=== PATIENT | female | born 1975 | race African-American/Black ===

== ENCOUNTER 2021-11-25 12:54 | Inpatient (IN) ==
[2021-11-25] MEDS ORDERED: ETOMIDATE 20 MG/10 ML VIAL IV ONE ×2 (15:50→16:07)
[2021-11-25] MEDS ORDERED: MIDAZOLAM 10 MG/2 ML VIAL ONE ×2 (15:50→16:52)
[2021-11-25] MEDS ORDERED: NOREPINEPHRINE 8 MG in SODIUM CHLORIDE 0.9% 242 ML IV PRN (15:51)
[2021-11-25] MEDS ORDERED: ONDANSETRON 4 MG/2 ML VIAL IV PRN (15:51)
[2021-11-25] MEDS ORDERED: ALBUTEROL 2.5 MG/3 ML NEB RESP TX PRN (15:51)
[2021-11-25] MEDS ORDERED: SUCCINYLCHOLINE 200 MG/10 ML VIAL ONE (15:52)
[2021-11-25] MEDS ORDERED: SODIUM CHLORIDE 0.9% 1,000 ML IV ONE (15:55)
[2021-11-25] MEDS ORDERED: SUCCINYLCHOLINE 200 MG/10 ML VIAL IV ONE (16:07)
[2021-11-25 16:37] LABS: Basophils % 0.1 % (0.0-0.8); Hematocrit 39.9 VOL% (35.7-47.0); Hemoglobin 12.5 GM/DL (12.0-16.0); Immature Granulocytes % 0.6 %; Immature Granulocytes Absolute 0.04 #; Lymphocytes # 0.5 10*3/uL (1.4-4.0); Lymphocytes % 6.9 % (21.3-54.2); Mean Corpuscular HGB Conc 31.3 GM/DL (32-36); Mean Corpuscular Volume 106.7 FL (87-102); Monocytes # 0.2 10*3/uL (0.11-0.8); Monocytes % 3.2 % (1.7-12.7); NRBC # 0.04 10*3/uL; Neutrophils % 89.2 % (38.7-73.9); Platelet Count 187 T/CUMM (130-400); Red Blood Count 3.74 MC/CUMM (3.8-5.5); Red Cell Distribution Width 13.1 % (9.3-17.3)
[2021-11-25] MEDS ORDERED: MIDAZOLAM 2 MG/2 ML VIAL IV ONE (16:50)
[2021-11-25] MEDS ORDERED: THIAMINE 200 MG/2 ML VIAL IV ONE (16:51)
[2021-11-25 16:52] LABS: Lactic Acid 0.8 MMOL/L (0.4-2.0)
[2021-11-25 16:58] LABS: Calcium 6.3 MG/DL (8.5-10.1); Osmolality,Calculated 307.1 MOS/KG (273-304); Potassium 4.1 MMOL/L (3.5-5.1); Total Protein 7.6 G/DL (6.4-8.2)
[2021-11-25 17:11] LABS: Band Neutrophils 6 % (0-10); Lymphocytes 11 % (20-55); Metamyelocytes 5 %; Myelocytes 1 %
[2021-11-25 17:13] LABS: Anisocytosis 1+; Total Cells Counted 100
[2021-11-25 17:14] LABS: Macrocytosis 1+; Polychromasia Slight; Thyroid Stimulating Hormone 0.455 uIU/ml (0.358-3.74)
[2021-11-25] MEDS: PANTOPRAZOLE 40 MG VIAL IV SCH (17:48)
[2021-11-25] MEDS: SODIUM CHLORIDE 0.9% 1,000 ML IV SCH (17:48)
[2021-11-25] MEDS: THIAMINE INJ 100 MG, FOLIC ACID INJ 1 MG, MULTIVITAMIN INJ 10 ML in SODIUM CHLORIDE 0.9... IV SCH (17:48)
[2021-11-25] MEDS: PIPERACILLIN/TAZOBACTAM 3,375 MG in SODIUM CHLORIDE 0.9% 100 ML IV SCH (17:49)
[2021-11-25] MEDS ORDERED: LACTATED RINGERS 1,000 ML IV ONE (17:53)
[2021-11-25] MEDS ORDERED: CALCIUM GLUCONATE RIDER 2,000 MG/100 ML PREMIX IV ONE (18:00)
[2021-11-25] MEDS: MIDAZOLAM 100 MG in SODIUM CHLORIDE 0.9% 80 ML IV PRN (18:07)
[2021-11-25] MEDS ORDERED: LORazepam 2 MG/1 ML VIAL IV ONE ×2 (18:32→18:35)
[2021-11-25] MEDS ORDERED: LORazepam 2 MG/1 ML VIAL ONE ×2 (18:32)
[2021-11-25 20:06] LABS: Hepatitis B Core IgM Quant 0.07 Index; Hepatitis B Surface Ag Quant 0.76 Index; Hepatitis B Surface Ag Result Non-Reactive (NonReactive); Hepatitis C Virus Ab Quant 0.14 Index; Hepatitis C Virus Ab Result Non-Reactive (NonReactive)
[2021-11-25 20:38] LABS: ABG Base Excess -1.3 MMOL/L (-2.5-2.5); ABG HCO3 23.4 MMOL/L (20-26); ABG Oxygen Saturation 99.7 % (95-100); ABG PCO2 58.4 MM HG (35-48); ABG TCO2 24.3 MMOL/L (23-27)
[2021-11-25] MEDS: MAGNESIUM SULF RIDER 2 GM/50 ML PREMIX IV PRN (21:58)
[2021-11-25] MEDS: ASPIRIN 325 MG TABLET PO SCH (22:03)
[2021-11-25] MEDS: LACTULOSE 20 GM/30 ML UDCUP PO SCH (22:05)
[2021-11-25 22:19] LABS: Amorphous Crystals,Urine Occasional /HPF (Few); Hyaline Casts,Urine 24 /LPF (0-3); Mucus,Urine Few /LPF (Occasional); RBC,Urine 2 /HPF (0-4); Squamous Epithelial Cell,Urine Occasional /HPF (0-10)
[2021-11-25 22:20] LABS: Bilirubin,Urine Small mg/dL (Negative); Blood, Urine Large mg/dL (Negative); Glucose,Urine (UA) Negative (Negative); Ketones,Urine Negative (Negative); Nitrite,Urine Negative (Negative); Protein,Urine >=300 mg/dL (Negative); Urine Appearance SL CLOUDY (Clear); Urine Color Yellow (Yellow); Urine Specific Gravity >= 1.030 (1.001-1.035); Urine pH 5.5 (4.5-8.0)
[2021-11-25 22:22] LABS: Barbiturates Screen,Urine Negative (Negative); Benzodiazepines Screen,Urine Positive (Negative); Cannabinoid Screen,Urine Positive (Negative); Opiate Screen,Urine Negative (Negative); Phencyclidine Screen,Urine Negative (Negative)
[2021-11-26] MEDS: PIPERACILLIN/TAZOBACTAM 3,375 MG in SODIUM CHLORIDE 0.9% 100 ML IV SCH ×3 (02:15→17:35)
[2021-11-26] MEDS: SODIUM CHLORIDE 0.9% 1,000 ML IV SCH ×2 (03:18→05:38)
[2021-11-26 03:45] LABS: ABG HCO3 23.6 MMOL/L (20-26); ABG Oxygen Saturation 99.9 % (95-100); ABG PCO2 46.3 MM HG (35-48); ABG TCO2 22.9 MMOL/L (23-27)
[2021-11-26 03:47] LABS: Basophils % 0.2 % (0.0-0.8); Hematocrit 33.9 VOL% (35.7-47.0); Hemoglobin 10.8 GM/DL (12.0-16.0); Immature Granulocytes % 0.3 %; Immature Granulocytes Absolute 0.02 #; Lymphocytes # 0.6 10*3/uL (1.4-4.0); Lymphocytes % 9.9 % (21.3-54.2); Mean Corpuscular HGB Conc 31.9 GM/DL (32-36); Mean Corpuscular Volume 104.3 FL (87-102); Mean Platelet Volume 11.2 FL (9.6-12.0); Monocytes # 0.2 10*3/uL (0.11-0.8); Monocytes % 3.3 % (1.7-12.7); NRBC # 0.02 10*3/uL; Neutrophils % 86.3 % (38.7-73.9); Platelet Count 165 T/CUMM (130-400); Red Blood Count 3.25 MC/CUMM (3.8-5.5); Red Cell Distribution Width 12.9 % (9.3-17.3); White Blood Count 6.4 T/CUMM (4-12)
[2021-11-26] MEDS: MIDAZOLAM 100 MG in SODIUM CHLORIDE 0.9% 80 ML IV PRN (04:08)
[2021-11-26 04:26] LABS: Albumin 2.6 G/DL (3.4-5.0); Bilirubin,Total 1.5 MG/DL (0.20-1.00); Calcium 6.5 MG/DL (8.5-10.1); Potassium 3.4 MMOL/L (3.5-5.1); Total Protein 5.9 G/DL (6.4-8.2)
[2021-11-26 04:33] LABS: Risk Ratio 4.57; VLDL Cholesterol 33.4 MG/DL
[2021-11-26 04:38] LABS: Lymphocytes 11 % (20-55); Platelet Estimate Adequate; Total Cells Counted 100
[2021-11-26] MEDS: LACTULOSE 20 GM/30 ML UDCUP PO SCH ×4 (04:53→21:18)
[2021-11-26] MEDS ORDERED: LORazepam 2 MG/1 ML VIAL ONE (05:10)
[2021-11-26] MEDS: fentaNYL INJ 1,250 MCG in SODIUM CHLORIDE 0.9% 225 ML IV PRN (05:19)
[2021-11-26] MEDS: LORazepam 2 MG/1 ML VIAL IV PRN ×2 (05:20→20:36)
[2021-11-26] MEDS ORDERED: POTASSIUM CHLORIDE 20 MEQ TABLET PO PRN (05:40)
[2021-11-26] MEDS: LACTATED RINGERS 1,000 ML IV SCH ×2 (07:15→16:35)
[2021-11-26 08:36] LABS: ABG HCO3 24.6 MMOL/L (20-26); ABG Oxygen Saturation 97.2 % (95-100); ABG PCO2 39.7 MM HG (35-48); ABG PO2 92.8 MM HG (80-95); ABG TCO2 25.8 MMOL/L (23-27)
[2021-11-26] MEDS: ASPIRIN 325 MG TABLET PO SCH (08:40)
[2021-11-26] MEDS: ERGOCALCIFEROL 50,000 UNIT CAPSULE PO SCH (08:40)
[2021-11-26] MEDS: CALCIUM CARBONATE CHEW 500 MG TABLET PO SCH ×2 (09:05→20:37)
[2021-11-26] MEDS: POTASSIUM BICARB EFFERVESCENT 20 MEQ TAB.EFF PER TUBE PRN ×3 (09:05→23:02)
[2021-11-26] MEDS ORDERED: ROCURONIUM 100 MG/10 ML VIAL IV ONE ×2 (09:50→09:51)
[2021-11-26] MEDS ORDERED: GLUCAGON 1 MG VIAL IM PRN (11:58)
[2021-11-26] MEDS ORDERED: DEXTROSE 10% 25 GM/250 ML BAG IV PRN (11:58)
[2021-11-26] MEDS: INSULIN REGULAR 100 UNIT/ML SUBCUT SCH ×2 (14:00→17:10)
[2021-11-26] MEDS ORDERED: METOPROLOL TARTRATE 5 MG/5 ML VIAL IV ONE ×2 (14:58→15:00)
[2021-11-26] MEDS: PANTOPRAZOLE 40 MG VIAL IV SCH (16:10)
[2021-11-26] MEDS: THIAMINE INJ 100 MG, FOLIC ACID INJ 1 MG, MULTIVITAMIN INJ 10 ML in SODIUM CHLORIDE 0.9... IV SCH (16:15)
[2021-11-26 17:25] LABS: Arterial Base Excess iSTAT -1 MMOL/L (-2.5-2.5); Arterial Bicarbonate iSTAT 27.8 MMOL/L (20-26); Arterial O2 Saturation iSTAT 99 % (95-100); Arterial PCO2 iSTAT 67 MM HG (35-48); Arterial PO2 iSTAT 174 MM HG (80-95); Arterial Total CO2 iSTAT 30 MMO/L (23-27); Arterial pH iSTAT 7.224 (7.35-7.45)
[2021-11-27] MEDS: INSULIN REGULAR 100 UNIT/ML SUBCUT SCH ×5 (00:23→20:37)
[2021-11-27] MEDS: POTASSIUM BICARB EFFERVESCENT 20 MEQ TAB.EFF PER TUBE PRN ×4 (01:10→16:41)
[2021-11-27] MEDS: PIPERACILLIN/TAZOBACTAM 3,375 MG in SODIUM CHLORIDE 0.9% 100 ML IV SCH ×3 (01:24→19:45)
[2021-11-27] MEDS: fentaNYL INJ 1,250 MCG in SODIUM CHLORIDE 0.9% 225 ML IV PRN (02:30)
[2021-11-27] MEDS: LACTATED RINGERS 1,000 ML IV SCH (02:35)
[2021-11-27 03:50] LABS: Basophils % 0.3 % (0.0-0.8); Eosinophils % 0.3 % (0.00-10.9); Hematocrit 28.6 VOL% (35.7-47.0); Hemoglobin 9.6 GM/DL (12.0-16.0); Immature Granulocytes % 0.3 %; Immature Granulocytes Absolute 0.02 #; Lymphocytes # 0.8 10*3/uL (1.4-4.0); Lymphocytes % 10.9 % (21.3-54.2); Mean Corpuscular HGB Conc 33.6 GM/DL (32-36); Mean Corpuscular Volume 100.7 FL (87-102); Mean Platelet Volume 11.5 FL (9.6-12.0); Monocytes # 0.3 10*3/uL (0.11-0.8); Monocytes % 4.2 % (1.7-12.7); NRBC # 0.05 10*3/uL; Platelet Count 137 T/CUMM (130-400); Red Blood Count 2.84 MC/CUMM (3.8-5.5); Red Cell Distribution Width 12.6 % (9.3-17.3)
[2021-11-27 03:51] LABS: ABG Base Excess 3.2 MMOL/L (-2.5-2.5); ABG HCO3 27.3 MMOL/L (20-26); ABG Oxygen Saturation 99.5 % (95-100); ABG PCO2 38.5 MM HG (35-48); ABG PH 7.456 (7.35-7.45); ABG TCO2 24.3 MMOL/L (23-27)
[2021-11-27 04:12] LABS: Albumin 2.3 G/DL (3.4-5.0); Bilirubin,Total 1.3 MG/DL (0.20-1.00); Calcium 7.1 MG/DL (8.5-10.1); Potassium 3.6 MMOL/L (3.5-5.1); Total Protein 5.9 G/DL (6.4-8.2)
[2021-11-27 04:34] LABS: Folate 14.76 NG/ML (5.38-24.0)
[2021-11-27 04:44] LABS: Lymphocytes 8 % (20-55); Total Cells Counted 100
[2021-11-27 04:45] LABS: Platelet Estimate Adequate
[2021-11-27] MEDS: MAGNESIUM SULF RIDER 2 GM/50 ML PREMIX IV PRN (05:06)
[2021-11-27] MEDS: LACTULOSE 20 GM/30 ML UDCUP PO SCH ×6 (05:09→22:24)
[2021-11-27] MEDS ORDERED: POTASSIUM PHOSPHATE 30 MMOL in SODIUM CHLORIDE 0.9% 250 ML IV ONE ×2 (06:00→16:00)
[2021-11-27] MEDS: MIDAZOLAM 100 MG in SODIUM CHLORIDE 0.9% 80 ML IV PRN (06:44)
[2021-11-27] MEDS ORDERED: ENOXAPARIN 40 MG/0.4 ML SYRINGE SUBCUT SCH (08:30)
[2021-11-27] MEDS ORDERED: LACTULOSE 20 GM/30 ML UDCUP PO SCH (10:00)
[2021-11-27] MEDS: FOLIC ACID 1 MG TABLET PO SCH (10:15)
[2021-11-27] MEDS: MULTIVITAMIN (BEROCCA) TABLET PO SCH (10:16)
[2021-11-27] MEDS: THIAMINE 100 MG TABLET PO SCH (10:16)
[2021-11-27] MEDS: CALCIUM CARBONATE CHEW 500 MG TABLET PO SCH ×2 (10:16→20:39)
[2021-11-27] MEDS: ASPIRIN 325 MG TABLET PO SCH (10:16)
[2021-11-27] MEDS: LORazepam 1 MG TABLET NG SCH ×4 (10:16→20:19)
[2021-11-27] MEDS: ENOXAPARIN 80 MG/0.8 ML SYRINGE SUBCUT SCH ×2 (10:17→20:39)
[2021-11-27] MEDS: PANTOPRAZOLE 40 MG VIAL IV SCH (16:44)
[2021-11-28] MEDS: LORazepam 1 MG TABLET NG SCH ×5 (00:08→21:21)
[2021-11-28] MEDS: INSULIN REGULAR 100 UNIT/ML SUBCUT SCH ×4 (00:08→17:39)
[2021-11-28] MEDS: fentaNYL INJ 1,250 MCG in SODIUM CHLORIDE 0.9% 225 ML IV PRN (00:57)
[2021-11-28] MEDS: LACTULOSE 20 GM/30 ML UDCUP PO SCH ×6 (02:30→21:18)
[2021-11-28] MEDS: PIPERACILLIN/TAZOBACTAM 3,375 MG in SODIUM CHLORIDE 0.9% 100 ML IV SCH (02:30)
[2021-11-28 03:28] LABS: ABG Base Excess 4.9 MMOL/L (-2.5-2.5); ABG HCO3 28.8 MMOL/L (20-26); ABG Oxygen Saturation 96.7 % (95-100); ABG PCO2 37.6 MM HG (35-48); ABG PH 7.487 (7.35-7.45); ABG PO2 83.1 MM HG (80-95); ABG TCO2 25.8 MMOL/L (23-27); Basophils % 0.4 % (0.0-0.8); Eosinophils # 0.1 10*3/uL (0.0-0.87); Eosinophils % 1.3 % (0.00-10.9); Hematocrit 30.6 VOL% (35.7-47.0); Hemoglobin 9.9 GM/DL (12.0-16.0); Immature Granulocytes % 0.7 %; Immature Granulocytes Absolute 0.05 #; Lymphocytes # 1.2 10*3/uL (1.4-4.0); Lymphocytes % 16.7 % (21.3-54.2); Mean Corpuscular HGB Conc 32.4 GM/DL (32-36); Mean Corpuscular Volume 102.3 FL (87-102); Mean Platelet Volume 11.7 FL (9.6-12.0); Monocytes # 0.5 10*3/uL (0.11-0.8); NRBC # 0.07 10*3/uL; Neutrophils % 73.9 % (38.7-73.9); Platelet Count 157 T/CUMM (130-400); Red Blood Count 2.99 MC/CUMM (3.8-5.5); Red Cell Distribution Width 12.9 % (9.3-17.3); White Blood Count 7.4 T/CUMM (4-12)
[2021-11-28 03:53] LABS: Albumin 2.5 G/DL (3.4-5.0); Bilirubin,Total 0.9 MG/DL (0.20-1.00); Calcium 7.8 MG/DL (8.5-10.1); Osmolality,Calculated 305.7 MOS/KG (273-304); Potassium 3.8 MMOL/L (3.5-5.1); Total Protein 6.4 G/DL (6.4-8.2)
[2021-11-28] MEDS: MIDAZOLAM 100 MG in SODIUM CHLORIDE 0.9% 80 ML IV PRN (04:25)
[2021-11-28] MEDS: LORazepam 2 MG/1 ML VIAL IV PRN (06:04)
[2021-11-28] MEDS: MAGNESIUM SULF RIDER 2 GM/50 ML PREMIX IV PRN (06:04)
[2021-11-28] MEDS: POTASSIUM BICARB EFFERVESCENT 20 MEQ TAB.EFF PER TUBE PRN (06:05)
[2021-11-28] MEDS ORDERED: POTASSIUM PHOSPHATE 30 MMOL in SODIUM CHLORIDE 0.9% 250 ML IV ONE (07:55)
[2021-11-28] MEDS: ENOXAPARIN 80 MG/0.8 ML SYRINGE SUBCUT SCH ×2 (09:06→21:19)
[2021-11-28] MEDS: FOLIC ACID 1 MG TABLET PO SCH (09:07)
[2021-11-28] MEDS: MULTIVITAMIN (BEROCCA) TABLET PO SCH (09:07)
[2021-11-28] MEDS: carvediloL 3.125 MG TABLET PO SCH ×2 (09:07→16:08)
[2021-11-28] MEDS: ASPIRIN 325 MG TABLET PO SCH (09:07)
[2021-11-28] MEDS: THIAMINE 100 MG TABLET PO SCH (09:08)
[2021-11-28] MEDS: cefTRIAXone 1,000 MG in SODIUM CHLORIDE 0.9% 100 ML IV SCH (09:09)
[2021-11-28] MEDS: DEXMEDETOMIDINE 200 MCG in SODIUM CHLORIDE 0.9% 48 ML IV PRN ×3 (12:28→21:08)
[2021-11-28] MEDS: PANTOPRAZOLE 40 MG VIAL IV SCH (16:10)
[2021-11-29] MEDS: DEXMEDETOMIDINE 400 MCG in SODIUM CHLORIDE 0.9% 96 ML IV PRN ×2 (00:52→08:40)
[2021-11-29] MEDS: INSULIN REGULAR 100 UNIT/ML SUBCUT SCH ×4 (00:54→17:30)
[2021-11-29] MEDS: LORazepam 1 MG TABLET NG SCH ×4 (02:46→23:59)
[2021-11-29] MEDS: LACTULOSE 20 GM/30 ML UDCUP PO SCH ×6 (02:47→21:04)
[2021-11-29 04:53] LABS: ABG Base Excess 2.2 MMOL/L (-2.5-2.5); ABG HCO3 26.3 MMOL/L (20-26); ABG Oxygen Saturation 96.6 % (95-100); ABG PCO2 39.4 MM HG (35-48); ABG PH 7.435 (7.35-7.45); ABG PO2 88.9 MM HG (80-95)
[2021-11-29 04:54] LABS: Basophils % 0.3 % (0.0-0.8); Eosinophils # 0.1 10*3/uL (0.0-0.87); Eosinophils % 1.5 % (0.00-10.9); Hematocrit 31.9 VOL% (35.7-47.0); Hemoglobin 10.3 GM/DL (12.0-16.0); Immature Granulocytes % 1.7 %; Immature Granulocytes Absolute 0.13 #; Lymphocytes # 1.7 10*3/uL (1.4-4.0); Lymphocytes % 22.5 % (21.3-54.2); Mean Corpuscular HGB Conc 32.3 GM/DL (32-36); Mean Corpuscular Volume 103.9 FL (87-102); Mean Platelet Volume 12.4 FL (9.6-12.0); Monocytes # 0.7 10*3/uL (0.11-0.8); Monocytes % 9.9 % (1.7-12.7); NRBC # 0.18 10*3/uL; Neutrophils % 64.1 % (38.7-73.9); Platelet Count 168 T/CUMM (130-400); Red Blood Count 3.07 MC/CUMM (3.8-5.5); Red Cell Distribution Width 12.8 % (9.3-17.3); White Blood Count 7.5 T/CUMM (4-12)
[2021-11-29 05:11] LABS: Albumin 2.4 G/DL (3.4-5.0); Bilirubin,Total 0.4 MG/DL (0.20-1.00); Calcium 8.5 MG/DL (8.5-10.1); Potassium 4.6 MMOL/L (3.5-5.1); Total Protein 6.4 G/DL (6.4-8.2)
[2021-11-29 05:17] LABS: Platelet Estimate Normal
[2021-11-29 05:40] LABS: Phosphorous 3.8 MG/DL (2.5-4.9)
[2021-11-29] MEDS: fentaNYL INJ 1,250 MCG in SODIUM CHLORIDE 0.9% 225 ML IV PRN (08:45)
[2021-11-29] MEDS: ASPIRIN 325 MG TABLET PO SCH (09:04)
[2021-11-29] MEDS: MULTIVITAMIN (BEROCCA) TABLET PO SCH (09:04)
[2021-11-29] MEDS: THIAMINE 100 MG TABLET PO SCH (09:04)
[2021-11-29] MEDS: carvediloL 3.125 MG TABLET PO SCH ×2 (09:09→17:33)
[2021-11-29] MEDS: cefTRIAXone 1,000 MG in SODIUM CHLORIDE 0.9% 100 ML IV SCH (09:10)
[2021-11-29] MEDS: FOLIC ACID 1 MG TABLET PO SCH (09:10)
[2021-11-29] MEDS: ENOXAPARIN 80 MG/0.8 ML SYRINGE SUBCUT SCH ×2 (09:11→21:03)
[2021-11-29] MEDS: MAGNESIUM SULF RIDER 2 GM/50 ML PREMIX IV PRN (09:34)
[2021-11-29] MEDS: PANTOPRAZOLE 40 MG VIAL IV SCH (16:16)
[2021-11-30] MEDS: INSULIN REGULAR 100 UNIT/ML SUBCUT SCH ×4 (00:26→17:25)
[2021-11-30] MEDS: LACTULOSE 20 GM/30 ML UDCUP PO SCH ×6 (01:00→21:00)
[2021-11-30] MEDS: fentaNYL INJ 1,250 MCG in SODIUM CHLORIDE 0.9% 225 ML IV PRN (03:30)
[2021-11-30 04:05] LABS: ABG Base Excess 2.3 MMOL/L (-2.5-2.5); ABG HCO3 26.4 MMOL/L (20-26); ABG Oxygen Saturation 94.6 % (95-100); ABG PCO2 38.3 MM HG (35-48); ABG PH 7.446 (7.35-7.45); ABG PO2 75.9 MM HG (80-95)
[2021-11-30 05:30] LABS: Basophils % 0.3 % (0.0-0.8); Eosinophils # 0.1 10*3/uL (0.0-0.87); Eosinophils % 0.9 % (0.00-10.9); Hematocrit 30.4 VOL% (35.7-47.0); Hemoglobin 9.7 GM/DL (12.0-16.0); Immature Granulocytes Absolute 0.14 #; Lymphocytes # 1.3 10*3/uL (1.4-4.0); Lymphocytes % 18.9 % (21.3-54.2); Mean Corpuscular HGB Conc 31.9 GM/DL (32-36); Mean Corpuscular Volume 103.8 FL (87-102); Monocytes # 0.7 10*3/uL (0.11-0.8); Monocytes % 9.8 % (1.7-12.7); NRBC # 0.06 10*3/uL; Neutrophils % 68.1 % (38.7-73.9); Platelet Count 177 T/CUMM (130-400); Red Blood Count 2.93 MC/CUMM (3.8-5.5); Red Cell Distribution Width 12.8 % (9.3-17.3)
[2021-11-30 05:42] LABS: Alanine Aminotransferase 73 U/L (13-56); Albumin 2.2 G/DL (3.4-5.0); Alkaline Phosphatase 92 U/L (45-117); Aspartate Amino Transferase 112 U/L (0-37); Bilirubin,Total < 0.39 MG/DL (0.20-1.00); Blood Urea Nitrogen 15 MG/DL (7-18); Calcium 8.8 MG/DL (8.5-10.1); Carbon Dioxide 27 MMOL/L (21-32); Chloride 116 MMOL/L (98-107); Estimated Glom Filtration Rate 161 ML/MIN; Glucose 113 MG/DL (74-106); Osmolality,Calculated 295.3 MOS/KG (273-304); Potassium 4.4 MMOL/L (3.5-5.1); Sodium 148 MMOL/L (136-145); Total Protein 5.4 G/DL (6.4-8.2)
[2021-11-30 05:48] LABS: Phosphorous 5.1 MG/DL (2.5-4.9); Platelet Estimate Normal
[2021-11-30 05:49] LABS: Anisocytosis Slight
[2021-11-30 05:50] LABS: Macrocytosis Slight
[2021-11-30] MEDS: MAGNESIUM SULF RIDER 4 GM/100 ML PREMIX IV PRN (06:00)
[2021-11-30] MEDS: cefTRIAXone 1,000 MG in SODIUM CHLORIDE 0.9% 100 ML IV SCH (08:20)
[2021-11-30] MEDS: LORazepam 2 MG/1 ML VIAL IV PRN (08:20)
[2021-11-30] MEDS: ENOXAPARIN 80 MG/0.8 ML SYRINGE SUBCUT SCH ×2 (08:25→20:57)
[2021-11-30] MEDS: FOLIC ACID 1 MG TABLET PO SCH (08:30)
[2021-11-30] MEDS: carvediloL 3.125 MG TABLET PO SCH ×2 (08:30→17:15)
[2021-11-30] MEDS: MULTIVITAMIN (BEROCCA) TABLET PO SCH (08:30)
[2021-11-30] MEDS: THIAMINE 100 MG TABLET PO SCH (08:30)
[2021-11-30] MEDS: ASPIRIN 325 MG TABLET PO SCH (08:30)
[2021-11-30] MEDS: PANTOPRAZOLE 40 MG VIAL IV SCH (16:00)
[2021-12-01] MEDS: INSULIN REGULAR 100 UNIT/ML SUBCUT SCH ×3 (00:22→15:35)
[2021-12-01] MEDS: fentaNYL INJ 1,250 MCG in SODIUM CHLORIDE 0.9% 225 ML IV PRN ×2 (01:00→23:50)
[2021-12-01] MEDS: LACTULOSE 20 GM/30 ML UDCUP PO SCH ×4 (01:03→20:03)
[2021-12-01 03:38] LABS: ABG Base Excess 2.7 MMOL/L (-2.5-2.5); ABG HCO3 26.8 MMOL/L (20-26); ABG Oxygen Saturation 97.4 % (95-100); ABG PH 7.445 (7.35-7.45); ABG TCO2 24.2 MMOL/L (23-27)
[2021-12-01 03:39] LABS: Basophils % 0.2 % (0.0-0.8); Eosinophils # 0.1 10*3/uL (0.0-0.87); Hematocrit 29.5 VOL% (35.7-47.0); Hemoglobin 9.7 GM/DL (12.0-16.0); Immature Granulocytes % 1.7 %; Immature Granulocytes Absolute 0.14 #; Lymphocytes # 1.3 10*3/uL (1.4-4.0); Lymphocytes % 15.1 % (21.3-54.2); Mean Corpuscular HGB Conc 32.9 GM/DL (32-36); Mean Corpuscular Volume 101.7 FL (87-102); Mean Platelet Volume 12.6 FL (9.6-12.0); Monocytes # 0.9 10*3/uL (0.11-0.8); Monocytes % 10.6 % (1.7-12.7); NRBC # 0.03 10*3/uL; Neutrophils % 71.4 % (38.7-73.9); Platelet Count 215 T/CUMM (130-400); Red Cell Distribution Width 12.9 % (9.3-17.3); White Blood Count 8.4 T/CUMM (4-12)
[2021-12-01 03:56] LABS: Calcium 8.8 MG/DL (8.5-10.1); Osmolality,Calculated 289.7 MOS/KG (273-304); Potassium 4.2 MMOL/L (3.5-5.1)
[2021-12-01 04:02] LABS: Eosinophils 1 % (0-10); Lymphocytes 13 % (20-55); Platelet Estimate Adequate; Total Cells Counted 100
[2021-12-01 04:03] LABS: Macrocytosis 1+; Polychromasia 1+
[2021-12-01] MEDS: MAGNESIUM SULF RIDER 4 GM/100 ML PREMIX IV PRN (04:05)
[2021-12-01] MEDS: ENOXAPARIN 80 MG/0.8 ML SYRINGE SUBCUT SCH ×2 (09:15→20:03)
[2021-12-01] MEDS: cefTRIAXone 1,000 MG in SODIUM CHLORIDE 0.9% 100 ML IV SCH (09:15)
[2021-12-01] MEDS: ASPIRIN 325 MG TABLET PO SCH (09:20)
[2021-12-01] MEDS: FOLIC ACID 1 MG TABLET PO SCH (09:20)
[2021-12-01] MEDS: MULTIVITAMIN (BEROCCA) TABLET PO SCH (09:20)
[2021-12-01] MEDS: THIAMINE 100 MG TABLET PO SCH (09:20)
[2021-12-01] MEDS: LEVOFLOXACIN 750 MG TABLET PER TUBE SCH (09:20)
[2021-12-01] MEDS: carvediloL 3.125 MG TABLET PO SCH ×2 (09:20→16:25)
[2021-12-01] MEDS ORDERED: ETOMIDATE 20 MG/10 ML VIAL IV ONE ×3 (10:55→12:00)
[2021-12-01] MEDS ORDERED: SUCCINYLCHOLINE 200 MG/10 ML VIAL ONE (10:57)
[2021-12-01] MEDS ORDERED: SUCCINYLCHOLINE 200 MG/10 ML VIAL IV ONE (12:00)
[2021-12-01] MEDS: PANTOPRAZOLE 40 MG VIAL IV SCH (16:25)
[2021-12-01] MEDS: levETIRAcetam LIQUID 100 MG/ML 30 ML/BOTTLE PER TUBE SCH (20:03)
[2021-12-02 04:14] LABS: ABG Base Excess 2.6 MMOL/L (-2.5-2.5); ABG HCO3 26.7 MMOL/L (20-26); ABG Oxygen Saturation 98.1 % (95-100); ABG PCO2 43.1 MM HG (35-48); ABG PH 7.415 (7.35-7.45); ABG TCO2 23.5 MMOL/L (23-27)
[2021-12-02 05:05] LABS: Basophils % 0.3 % (0.0-0.8); Eosinophils # 0.1 10*3/uL (0.0-0.87); Eosinophils % 0.6 % (0.00-10.9); Hematocrit 30.2 VOL% (35.7-47.0); Hemoglobin 9.7 GM/DL (12.0-16.0); Immature Granulocytes % 1.7 %; Immature Granulocytes Absolute 0.19 #; Lymphocytes # 1.2 10*3/uL (1.4-4.0); Lymphocytes % 10.8 % (21.3-54.2); Mean Corpuscular HGB Conc 32.1 GM/DL (32-36); Mean Corpuscular Volume 103.1 FL (87-102); Monocytes # 0.9 10*3/uL (0.11-0.8); Monocytes % 7.4 % (1.7-12.7); NRBC # 0.02 10*3/uL; Neutrophils % 79.2 % (38.7-73.9); Platelet Count 226 T/CUMM (130-400); Red Blood Count 2.93 MC/CUMM (3.8-5.5); Red Cell Distribution Width 12.8 % (9.3-17.3); White Blood Count 11.5 T/CUMM (4-12)
[2021-12-02 05:26] LABS: Calcium 8.6 MG/DL (8.5-10.1)
[2021-12-02 05:34] LABS: Eosinophils 1 % (0-10); Lymphocytes 9 % (20-55); Total Cells Counted 100
[2021-12-02 05:35] LABS: Platelet Estimate Adequate; Polychromasia Slight
[2021-12-02] MEDS: MAGNESIUM SULF RIDER 2 GM/50 ML PREMIX IV PRN (05:50)
[2021-12-02] MEDS: INSULIN REGULAR 100 UNIT/ML SUBCUT SCH ×2 (07:47→15:53)
[2021-12-02] MEDS ORDERED: MAGNESIUM SULF RIDER 2 GM/50 ML PREMIX IV ONE (07:56)
[2021-12-02] MEDS: LEVOFLOXACIN 750 MG TABLET PER TUBE SCH (09:00)
[2021-12-02] MEDS: MULTIVITAMIN (BEROCCA) TABLET PO SCH (09:00)
[2021-12-02] MEDS: FOLIC ACID 1 MG TABLET PO SCH (09:00)
[2021-12-02] MEDS: LACTULOSE 20 GM/30 ML UDCUP PO SCH ×2 (09:00→20:07)
[2021-12-02] MEDS: ENOXAPARIN 80 MG/0.8 ML SYRINGE SUBCUT SCH (09:01)
[2021-12-02] MEDS: carvediloL 3.125 MG TABLET PO SCH ×2 (09:01→18:10)
[2021-12-02] MEDS: THIAMINE 100 MG TABLET PO SCH (09:01)
[2021-12-02] MEDS: ASPIRIN 325 MG TABLET PO SCH (09:01)
[2021-12-02] MEDS: levETIRAcetam LIQUID 100 MG/ML 30 ML/BOTTLE PER TUBE SCH ×2 (09:02→20:07)
[2021-12-02] MEDS: cefTRIAXone 1,000 MG in SODIUM CHLORIDE 0.9% 100 ML IV SCH (09:02)
[2021-12-02] MEDS: PANTOPRAZOLE 40 MG VIAL IV SCH (15:50)
[2021-12-02] MEDS: fentaNYL INJ 1,250 MCG in SODIUM CHLORIDE 0.9% 225 ML IV PRN (17:12)
[2021-12-03 03:43] LABS: ABG Base Excess 2.1 MMOL/L (-2.5-2.5); ABG HCO3 26.3 MMOL/L (20-26); ABG PCO2 41.5 MM HG (35-48); ABG PH 7.419 (7.35-7.45); ABG TCO2 23.9 MMOL/L (23-27)
[2021-12-03 03:47] LABS: Basophils % 0.3 % (0.0-0.8); Eosinophils # 0.1 10*3/uL (0.0-0.87); Eosinophils % 0.9 % (0.00-10.9); Hematocrit 25.6 VOL% (35.7-47.0); Hemoglobin 8.2 GM/DL (12.0-16.0); Immature Granulocytes % 2.1 %; Immature Granulocytes Absolute 0.24 #; Lymphocytes # 1.1 10*3/uL (1.4-4.0); Lymphocytes % 9.9 % (21.3-54.2); Mean Corpuscular Volume 103.2 FL (87-102); Mean Platelet Volume 12.3 FL (9.6-12.0); Monocytes # 0.9 10*3/uL (0.11-0.8); Monocytes % 7.9 % (1.7-12.7); Neutrophils % 78.9 % (38.7-73.9); Platelet Count 271 T/CUMM (130-400); Red Blood Count 2.48 MC/CUMM (3.8-5.5); Red Cell Distribution Width 12.4 % (9.3-17.3); White Blood Count 11.3 T/CUMM (4-12)
[2021-12-03 04:03] LABS: Calcium 8.3 MG/DL (8.5-10.1); Osmolality,Calculated 283.1 MOS/KG (273-304); Potassium 3.8 MMOL/L (3.5-5.1)
[2021-12-03 04:08] LABS: Lymphocytes 7 % (20-55)
[2021-12-03 04:09] LABS: Platelet Estimate Normal; Total Cells Counted 100
[2021-12-03] MEDS: MAGNESIUM SULF RIDER 2 GM/50 ML PREMIX IV PRN (05:36)
[2021-12-03] MEDS: POTASSIUM CHLORIDE RIDER 20 MEQ/100 ML PREMIX IV PRN (05:36)
[2021-12-03] MEDS ORDERED: ROCURONIUM 100 MG/10 ML VIAL IV ONE ×2 (07:12→07:14)
[2021-12-03] MEDS ORDERED: MIDAZOLAM 2 MG/2 ML VIAL IV ONE ×2 (07:14→07:15)
[2021-12-03] MEDS: INSULIN REGULAR 100 UNIT/ML SUBCUT SCH ×2 (07:55→16:37)
[2021-12-03] MEDS ORDERED: MAGNESIUM SULF RIDER 2 GM/50 ML PREMIX IV ONE (08:53)
[2021-12-03] MEDS: THIAMINE 100 MG TABLET PO SCH (09:51)
[2021-12-03] MEDS: MULTIVITAMIN (BEROCCA) TABLET PO SCH (09:51)
[2021-12-03] MEDS: carvediloL 3.125 MG TABLET PO SCH ×2 (09:51→16:44)
[2021-12-03] MEDS: levETIRAcetam LIQUID 100 MG/ML 30 ML/BOTTLE PER TUBE SCH ×2 (09:51→20:41)
[2021-12-03] MEDS: ERGOCALCIFEROL 50,000 UNIT CAPSULE PO SCH (09:51)
[2021-12-03] MEDS: LACTULOSE 20 GM/30 ML UDCUP PO SCH (09:51)
[2021-12-03] MEDS: FOLIC ACID 1 MG TABLET PO SCH (09:52)
[2021-12-03] MEDS: LEVOFLOXACIN 750 MG TABLET PER TUBE SCH (09:52)
[2021-12-03] MEDS: cefTRIAXone 1,000 MG in SODIUM CHLORIDE 0.9% 100 ML IV SCH (10:00)
[2021-12-03] MEDS: fentaNYL INJ 1,250 MCG in SODIUM CHLORIDE 0.9% 225 ML IV PRN (11:27)
[2021-12-03] MEDS: PANTOPRAZOLE 40 MG VIAL IV SCH (16:44)
[2021-12-04 03:44] LABS: Basophils # 0.1 10*3/uL (0.0-0.2); Basophils % 0.5 % (0.0-0.8); Eosinophils # 0.1 10*3/uL (0.0-0.87); Eosinophils % 0.6 % (0.00-10.9); Hematocrit 28.4 VOL% (35.7-47.0); Hemoglobin 9.3 GM/DL (12.0-16.0); Immature Granulocytes % 1.3 %; Immature Granulocytes Absolute 0.14 #; Lymphocytes # 1.1 10*3/uL (1.4-4.0); Lymphocytes % 10.5 % (21.3-54.2); Mean Corpuscular HGB Conc 32.7 GM/DL (32-36); Mean Corpuscular Volume 101.1 FL (87-102); Monocytes # 0.7 10*3/uL (0.11-0.8); Monocytes % 6.5 % (1.7-12.7); Neutrophils % 80.6 % (38.7-73.9); Platelet Count 278 T/CUMM (130-400); Red Blood Count 2.81 MC/CUMM (3.8-5.5); Red Cell Distribution Width 12.5 % (9.3-17.3); White Blood Count 10.5 T/CUMM (4-12)
[2021-12-04 03:47] LABS: ABG Base Excess 1.7 MMOL/L (-2.5-2.5); ABG HCO3 25.9 MMOL/L (20-26); ABG PCO2 40.3 MM HG (35-48); ABG PH 7.421 (7.35-7.45)
[2021-12-04 04:07] LABS: Calcium 8.5 MG/DL (8.5-10.1); Osmolality,Calculated 283.1 MOS/KG (273-304)
[2021-12-04] MEDS: MAGNESIUM SULF RIDER 2 GM/50 ML PREMIX IV PRN (04:49)
[2021-12-04] MEDS: carvediloL 3.125 MG TABLET PO SCH ×2 (08:15→18:27)
[2021-12-04] MEDS: THIAMINE 100 MG TABLET PO SCH (08:15)
[2021-12-04] MEDS: MULTIVITAMIN (BEROCCA) TABLET PO SCH (08:15)
[2021-12-04] MEDS: LEVOFLOXACIN 750 MG TABLET PER TUBE SCH (08:15)
[2021-12-04] MEDS: LACTULOSE 20 GM/30 ML UDCUP PO SCH (08:15)
[2021-12-04] MEDS: FOLIC ACID 1 MG TABLET PO SCH (08:15)
[2021-12-04] MEDS: cefTRIAXone 1,000 MG in SODIUM CHLORIDE 0.9% 100 ML IV SCH (08:15)
[2021-12-04] MEDS: levETIRAcetam LIQUID 100 MG/ML 30 ML/BOTTLE PER TUBE SCH ×2 (08:16→21:38)
[2021-12-04] MEDS: INSULIN REGULAR 100 UNIT/ML SUBCUT SCH ×2 (14:28→18:25)
[2021-12-04] MEDS ORDERED: cloNIDine 0.1 MG TABLET PO PRN (18:06)
[2021-12-04] MEDS: PANTOPRAZOLE 40 MG VIAL IV SCH (18:24)
[2021-12-04] MEDS: carvediloL 25 MG TABLET PER TUBE SCH ×2 (18:25→21:37)
[2021-12-04] MEDS: allopurinoL 100 MG TABLET PO SCH (21:38)
[2021-12-05 04:21] LABS: Basophils # 0.1 10*3/uL (0.0-0.2); Basophils % 0.5 % (0.0-0.8); Eosinophils # 0.1 10*3/uL (0.0-0.87); Eosinophils % 0.5 % (0.00-10.9); Hematocrit 29.2 VOL% (35.7-47.0); Hemoglobin 9.6 GM/DL (12.0-16.0); Immature Granulocytes % 1.1 %; Immature Granulocytes Absolute 0.14 #; Lymphocytes # 1.2 10*3/uL (1.4-4.0); Lymphocytes % 9.6 % (21.3-54.2); Mean Corpuscular HGB Conc 32.9 GM/DL (32-36); Mean Corpuscular Volume 101.4 FL (87-102); Mean Platelet Volume 11.8 FL (9.6-12.0); Monocytes # 0.9 10*3/uL (0.11-0.8); Monocytes % 7.4 % (1.7-12.7); Neutrophils % 80.9 % (38.7-73.9); Platelet Count 316 T/CUMM (130-400); Red Blood Count 2.88 MC/CUMM (3.8-5.5); Red Cell Distribution Width 12.1 % (9.3-17.3); White Blood Count 12.8 T/CUMM (4-12)
[2021-12-05 04:23] LABS: ABG Base Excess 2.4 MMOL/L (-2.5-2.5); ABG HCO3 26.5 MMOL/L (20-26); ABG Oxygen Saturation 99.3 % (95-100); ABG PCO2 37.9 MM HG (35-48); ABG PH 7.449 (7.35-7.45); ABG TCO2 23.3 MMOL/L (23-27)
[2021-12-05 04:35] LABS: Calcium 8.8 MG/DL (8.5-10.1); Osmolality,Calculated 282.3 MOS/KG (273-304); Potassium 3.7 MMOL/L (3.5-5.1)
[2021-12-05] MEDS: MAGNESIUM SULF RIDER 2 GM/50 ML PREMIX IV PRN ×2 (05:13→07:15)
[2021-12-05] MEDS: INSULIN REGULAR 100 UNIT/ML SUBCUT SCH ×2 (07:20→17:26)
[2021-12-05] MEDS ORDERED: MAGNESIUM SULF RIDER 2 GM/50 ML PREMIX IV ONE (08:12)
[2021-12-05] MEDS: LEVOFLOXACIN 750 MG TABLET PER TUBE SCH (08:44)
[2021-12-05] MEDS: LACTULOSE 20 GM/30 ML UDCUP PO SCH (08:44)
[2021-12-05] MEDS: FLUoxetine 10 MG CAPSULE PO SCH (08:44)
[2021-12-05] MEDS: amLODIPine 10 MG TABLET PO SCH (08:45)
[2021-12-05] MEDS: OLANZapine 5 MG TABLET PO SCH (08:45)
[2021-12-05] MEDS: FOLIC ACID 1 MG TABLET PO SCH (08:45)
[2021-12-05] MEDS: MULTIVITAMIN (BEROCCA) TABLET PO SCH (08:45)
[2021-12-05] MEDS: THIAMINE 100 MG TABLET PO SCH (08:45)
[2021-12-05] MEDS: MONTELUKAST 10 MG TABLET PO SCH (08:45)
[2021-12-05] MEDS: allopurinoL 100 MG TABLET PO SCH ×3 (08:46→20:45)
[2021-12-05] MEDS: levETIRAcetam LIQUID 100 MG/ML 30 ML/BOTTLE PER TUBE SCH ×2 (08:46→20:44)
[2021-12-05] MEDS: carvediloL 25 MG TABLET PER TUBE SCH ×2 (08:46→20:44)
[2021-12-05] MEDS: cefTRIAXone 1,000 MG in SODIUM CHLORIDE 0.9% 100 ML IV SCH (08:46)
[2021-12-05] MEDS: POTASSIUM CHLORIDE RIDER 20 MEQ/100 ML PREMIX IV PRN (09:00)
[2021-12-05] MEDS: ASPIRIN 325 MG TABLET PO SCH (12:26)
[2021-12-05] MEDS: ENOXAPARIN 80 MG/0.8 ML SYRINGE SUBCUT SCH ×2 (12:26→20:44)
[2021-12-05] MEDS: PANTOPRAZOLE 40 MG VIAL IV SCH (17:26)
[2021-12-06 05:05] LABS: ABG Base Excess 2.3 MMOL/L (-2.5-2.5); ABG HCO3 26.5 MMOL/L (20-26); ABG Oxygen Saturation 99.4 % (95-100); ABG PCO2 36.7 MM HG (35-48); ABG PH 7.459 (7.35-7.45); ABG TCO2 23.6 MMOL/L (23-27)
[2021-12-06 05:08] LABS: Basophils # 0.1 10*3/uL (0.0-0.2); Basophils % 0.8 % (0.0-0.8); Eosinophils # 0.1 10*3/uL (0.0-0.87); Eosinophils % 0.9 % (0.00-10.9); Hematocrit 31.4 VOL% (35.7-47.0); Immature Granulocytes % 1.2 %; Immature Granulocytes Absolute 0.17 #; Lymphocytes # 1.4 10*3/uL (1.4-4.0); Lymphocytes % 10.2 % (21.3-54.2); Mean Corpuscular HGB Conc 31.8 GM/DL (32-36); Mean Corpuscular Volume 103.3 FL (87-102); Mean Platelet Volume 11.8 FL (9.6-12.0); Monocytes # 0.9 10*3/uL (0.11-0.8); Monocytes % 6.4 % (1.7-12.7); Neutrophils % 80.5 % (38.7-73.9); Platelet Count 338 T/CUMM (130-400); Red Blood Count 3.04 MC/CUMM (3.8-5.5); Red Cell Distribution Width 12.2 % (9.3-17.3); White Blood Count 14.2 T/CUMM (4-12)
[2021-12-06 05:19] LABS: Calcium 8.8 MG/DL (8.5-10.1); Osmolality,Calculated 282.3 MOS/KG (273-304); Potassium 3.9 MMOL/L (3.5-5.1)
[2021-12-06] MEDS: MAGNESIUM SULF RIDER 2 GM/50 ML PREMIX IV PRN (05:38)
[2021-12-06] MEDS: OLANZapine 5 MG TABLET PO SCH (08:22)
[2021-12-06] MEDS: MULTIVITAMIN (BEROCCA) TABLET PO SCH (08:23)
[2021-12-06] MEDS: LACTULOSE 20 GM/30 ML UDCUP PO SCH (08:23)
[2021-12-06] MEDS: carvediloL 25 MG TABLET PER TUBE SCH ×2 (08:23→20:39)
[2021-12-06] MEDS: MONTELUKAST 10 MG TABLET PO SCH (08:23)
[2021-12-06] MEDS: amLODIPine 10 MG TABLET PO SCH (08:23)
[2021-12-06] MEDS: LEVOFLOXACIN 750 MG TABLET PER TUBE SCH (08:23)
[2021-12-06] MEDS: levETIRAcetam LIQUID 100 MG/ML 30 ML/BOTTLE PER TUBE SCH ×2 (08:24→20:39)
[2021-12-06] MEDS: allopurinoL 100 MG TABLET PO SCH ×3 (08:24→20:40)
[2021-12-06] MEDS: THIAMINE 100 MG TABLET PO SCH (08:24)
[2021-12-06] MEDS: FOLIC ACID 1 MG TABLET PO SCH (08:24)
[2021-12-06] MEDS: FLUoxetine 10 MG CAPSULE PO SCH (08:25)
[2021-12-06] MEDS ORDERED: MAGNESIUM SULF RIDER 2 GM/50 ML PREMIX IV ONE (08:30)
[2021-12-06] MEDS: INSULIN REGULAR 100 UNIT/ML SUBCUT SCH ×2 (11:00→16:26)
[2021-12-06] MEDS: ENOXAPARIN 80 MG/0.8 ML SYRINGE SUBCUT SCH ×2 (11:01→20:39)
[2021-12-06] MEDS: ASPIRIN 325 MG TABLET PO SCH (11:01)
[2021-12-06] MEDS: PANTOPRAZOLE 40 MG VIAL IV SCH (16:25)
[2021-12-07 03:49] LABS: ABG Base Excess 2.5 MMOL/L (-2.5-2.5); ABG HCO3 26.7 MMOL/L (20-26); ABG Oxygen Saturation 98.6 % (95-100); ABG PCO2 37.6 MM HG (35-48); ABG PH 7.454 (7.35-7.45); ABG TCO2 23.7 MMOL/L (23-27)
[2021-12-07 05:13] LABS: Basophils # 0.1 10*3/uL (0.0-0.2); Basophils % 0.9 % (0.0-0.8); Eosinophils # 0.2 10*3/uL (0.0-0.87); Eosinophils % 1.2 % (0.00-10.9); Hematocrit 31.8 VOL% (35.7-47.0); Hemoglobin 10.4 GM/DL (12.0-16.0); Immature Granulocytes % 1.7 %; Immature Granulocytes Absolute 0.23 #; Lymphocytes # 2.2 10*3/uL (1.4-4.0); Mean Corpuscular HGB Conc 32.7 GM/DL (32-36); Mean Platelet Volume 11.9 FL (9.6-12.0); Monocytes # 0.8 10*3/uL (0.11-0.8); Monocytes % 5.6 % (1.7-12.7); Neutrophils % 74.6 % (38.7-73.9); Platelet Count 393 T/CUMM (130-400); Red Blood Count 3.18 MC/CUMM (3.8-5.5); White Blood Count 13.6 T/CUMM (4-12)
[2021-12-07 05:33] LABS: Phosphorous 4.6 MG/DL (2.5-4.9)
[2021-12-07 05:46] LABS: Calcium 9.3 MG/DL (8.5-10.1); Osmolality,Calculated 280.4 MOS/KG (273-304); Potassium 3.9 MMOL/L (3.5-5.1)
[2021-12-07] MEDS: MAGNESIUM SULF RIDER 2 GM/50 ML PREMIX IV PRN (06:04)
[2021-12-07] MEDS ORDERED: LACTATED RINGERS 1,000 ML IV SCH (07:00)
[2021-12-07 07:15] LABS: INR 1.1; PT Patient Result 11.7 SECS (10.5-12.0)
[2021-12-07] MEDS: INSULIN REGULAR 100 UNIT/ML SUBCUT SCH ×2 (07:26→15:32)
[2021-12-07] MEDS ORDERED: ATORVASTATIN 40 MG TABLET PER TUBE SCH (09:00)
[2021-12-07] MEDS: amLODIPine 10 MG TABLET PO SCH (09:26)
[2021-12-07] MEDS: LEVOFLOXACIN 750 MG TABLET PER TUBE SCH (09:30)
[2021-12-07] MEDS: levETIRAcetam LIQUID 100 MG/ML 30 ML/BOTTLE PER TUBE SCH ×2 (09:43→20:13)
[2021-12-07] MEDS: MULTIVITAMIN (BEROCCA) TABLET PO SCH (09:43)
[2021-12-07] MEDS: ASPIRIN 325 MG TABLET PO SCH (09:43)
[2021-12-07] MEDS: FOLIC ACID 1 MG TABLET PO SCH (09:43)
[2021-12-07] MEDS: FLUoxetine 10 MG CAPSULE PO SCH (09:44)
[2021-12-07] MEDS: THIAMINE 100 MG TABLET PO SCH (09:44)
[2021-12-07] MEDS: OLANZapine 5 MG TABLET PO SCH (09:44)
[2021-12-07] MEDS: allopurinoL 100 MG TABLET PO SCH ×3 (09:44→20:10)
[2021-12-07] MEDS: carvediloL 25 MG TABLET PER TUBE SCH ×2 (09:44→20:10)
[2021-12-07] MEDS: MONTELUKAST 10 MG TABLET PO SCH (09:44)
[2021-12-07] MEDS: DEXMEDETOMIDINE 400 MCG in SODIUM CHLORIDE 0.9% 96 ML IV PRN ×2 (10:00→20:11)
[2021-12-07] MEDS: LACTULOSE 20 GM/30 ML UDCUP PO SCH (10:28)
[2021-12-07] MEDS: PANTOPRAZOLE 40 MG VIAL IV SCH (15:06)
[2021-12-08] MEDS: DEXMEDETOMIDINE 400 MCG in SODIUM CHLORIDE 0.9% 96 ML IV PRN ×3 (04:00→18:30)
[2021-12-08 04:10] LABS: ABG Base Excess 2.8 MMOL/L (-2.5-2.5); ABG HCO3 26.9 MMOL/L (20-26); ABG Oxygen Saturation 98.7 % (95-100); ABG PCO2 37.5 MM HG (35-48); ABG PH 7.459 (7.35-7.45); ABG TCO2 23.8 MMOL/L (23-27)
[2021-12-08 04:20] LABS: Basophils # 0.1 10*3/uL (0.0-0.2); Eosinophils # 0.2 10*3/uL (0.0-0.87); Eosinophils % 1.3 % (0.00-10.9); Hematocrit 32.9 VOL% (35.7-47.0); Hemoglobin 10.6 GM/DL (12.0-16.0); Immature Granulocytes Absolute 0.13 #; Lymphocytes # 1.8 10*3/uL (1.4-4.0); Lymphocytes % 13.8 % (21.3-54.2); Mean Corpuscular HGB Conc 32.2 GM/DL (32-36); Mean Corpuscular Volume 102.8 FL (87-102); Mean Platelet Volume 11.2 FL (9.6-12.0); Monocytes # 0.8 10*3/uL (0.11-0.8); Monocytes % 6.1 % (1.7-12.7); Neutrophils % 76.8 % (38.7-73.9); Platelet Count 376 T/CUMM (130-400); Red Cell Distribution Width 11.9 % (9.3-17.3); White Blood Count 12.7 T/CUMM (4-12)
[2021-12-08 04:46] LABS: Albumin 2.7 G/DL (3.4-5.0); Bilirubin,Total 0.4 MG/DL (0.20-1.00); Calcium 9.4 MG/DL (8.5-10.1); Osmolality,Calculated 285.3 MOS/KG (273-304); Potassium 4.1 MMOL/L (3.5-5.1); Total Protein 7.8 G/DL (6.4-8.2)
[2021-12-08] MEDS: MAGNESIUM SULF RIDER 2 GM/50 ML PREMIX IV PRN (04:50)
[2021-12-08] MEDS ORDERED: LACTATED RINGERS 1,000 ML IV SCH (07:00)
[2021-12-08] MEDS: INSULIN REGULAR 100 UNIT/ML SUBCUT SCH ×2 (07:02→16:55)
[2021-12-08] MEDS ORDERED: LIDOCAINE 2% 5 ML VIAL ONE (07:45)
[2021-12-08] MEDS ORDERED: propofoL 200 MG/20 ML VIAL IV ONE (07:45)
[2021-12-08] MEDS ORDERED: ePHEDrine 50 MG/ML VIAL ONE (07:46)
[2021-12-08] MEDS: MULTIVITAMIN (BEROCCA) TABLET PO SCH (09:06)
[2021-12-08] MEDS: ASPIRIN 325 MG TABLET PO SCH (09:06)
[2021-12-08] MEDS: FOLIC ACID 1 MG TABLET PO SCH (09:06)
[2021-12-08] MEDS: MONTELUKAST 10 MG TABLET PO SCH (09:06)
[2021-12-08] MEDS: THIAMINE 100 MG TABLET PO SCH (09:07)
[2021-12-08] MEDS: OLANZapine 5 MG TABLET PO SCH (09:07)
[2021-12-08] MEDS: FLUoxetine 10 MG CAPSULE PO SCH (09:07)
[2021-12-08] MEDS: allopurinoL 100 MG TABLET PO SCH ×3 (09:07→20:34)
[2021-12-08] MEDS: LEVOFLOXACIN 750 MG TABLET PER TUBE SCH (09:07)
[2021-12-08] MEDS: amLODIPine 10 MG TABLET PO SCH (09:07)
[2021-12-08] MEDS: levETIRAcetam LIQUID 100 MG/ML 30 ML/BOTTLE PER TUBE SCH ×2 (09:07→20:34)
[2021-12-08] MEDS: carvediloL 25 MG TABLET PER TUBE SCH ×2 (09:08→20:00)
[2021-12-08] MEDS: CLORAZEPATE 3.75 MG TABLET PER TUBE SCH ×3 (09:47→20:34)
[2021-12-08] MEDS: PANTOPRAZOLE 40 MG VIAL IV SCH (15:21)
[2021-12-09] MEDS: DEXMEDETOMIDINE 400 MCG in SODIUM CHLORIDE 0.9% 96 ML IV PRN (02:10)
[2021-12-09] MEDS: CLORAZEPATE 3.75 MG TABLET PER TUBE SCH ×4 (02:53→20:20)
[2021-12-09 03:44] LABS: Basophils # 0.1 10*3/uL (0.0-0.2); Eosinophils # 0.1 10*3/uL (0.0-0.87); Eosinophils % 0.9 % (0.00-10.9); Hematocrit 34.8 VOL% (35.7-47.0); Hemoglobin 11.4 GM/DL (12.0-16.0); Immature Granulocytes % 1.4 %; Immature Granulocytes Absolute 0.16 #; Lymphocytes # 1.9 10*3/uL (1.4-4.0); Lymphocytes % 16.3 % (21.3-54.2); Mean Corpuscular HGB Conc 32.8 GM/DL (32-36); Mean Corpuscular Volume 98.9 FL (87-102); Mean Platelet Volume 12.6 FL (9.6-12.0); Monocytes # 0.8 10*3/uL (0.11-0.8); Monocytes % 6.8 % (1.7-12.7); Neutrophils % 73.6 % (38.7-73.9); Platelet Count 246 T/CUMM (130-400); Red Blood Count 3.52 MC/CUMM (3.8-5.5); Red Cell Distribution Width 11.9 % (9.3-17.3); White Blood Count 11.8 T/CUMM (4-12)
[2021-12-09 03:50] LABS: Arterial Base Excess iSTAT 4 MMOL/L (-2.5-2.5); Arterial Bicarbonate iSTAT 26.2 MMOL/L (20-26); Arterial O2 Saturation iSTAT 99 % (95-100); Arterial PCO2 iSTAT 29 MM HG (35-48); Arterial PO2 iSTAT 113 MM HG (80-95); Arterial Total CO2 iSTAT 27 MMO/L (23-27); Arterial pH iSTAT 7.557 (7.35-7.45)
[2021-12-09 04:15] LABS: Albumin 2.8 G/DL (3.4-5.0); Bilirubin,Total 0.9 MG/DL (0.20-1.00); Calcium 9.8 MG/DL (8.5-10.1); Osmolality,Calculated 280.4 MOS/KG (273-304); Potassium 4.3 MMOL/L (3.5-5.1); Total Protein 8.3 G/DL (6.4-8.2)
[2021-12-09] MEDS: MAGNESIUM SULF RIDER 2 GM/50 ML PREMIX IV PRN (09:00)
[2021-12-09] MEDS: allopurinoL 100 MG TABLET PO SCH ×3 (09:19→20:19)
[2021-12-09] MEDS: MONTELUKAST 10 MG TABLET PO SCH (09:19)
[2021-12-09] MEDS: ASPIRIN 325 MG TABLET PO SCH (09:19)
[2021-12-09] MEDS: FOLIC ACID 1 MG TABLET PO SCH (09:19)
[2021-12-09] MEDS: OLANZapine 5 MG TABLET PO SCH (09:19)
[2021-12-09] MEDS: MULTIVITAMIN (BEROCCA) TABLET PO SCH (09:20)
[2021-12-09] MEDS: amLODIPine 10 MG TABLET PO SCH (09:20)
[2021-12-09] MEDS: THIAMINE 100 MG TABLET PO SCH (09:20)
[2021-12-09] MEDS: carvediloL 25 MG TABLET PER TUBE SCH ×2 (09:20→20:19)
[2021-12-09] MEDS: FLUoxetine 10 MG CAPSULE PO SCH (09:21)
[2021-12-09] MEDS: levETIRAcetam LIQUID 100 MG/ML 30 ML/BOTTLE PER TUBE SCH ×2 (09:21→20:20)
[2021-12-09] MEDS: MAGNESIUM OXIDE 400 MG TABLET PER TUBE SCH ×2 (09:30→20:19)
[2021-12-09] MEDS: INSULIN REGULAR 100 UNIT/ML SUBCUT SCH ×2 (09:58→17:32)
[2021-12-09] MEDS: ENOXAPARIN 80 MG/0.8 ML SYRINGE SUBCUT SCH (14:56)
[2021-12-09] MEDS: PANTOPRAZOLE 40 MG VIAL IV SCH (15:45)
[2021-12-09] MEDS: ACETAMINOPHEN 325 MG TABLET PO PRN (20:20)
[2021-12-09] MEDS: APIXABAN 5 MG TABLET PO SCH (20:20)
[2021-12-09] MEDS ORDERED: LORazepam 2 MG/1 ML VIAL IV ONE (23:30)
[2021-12-10] MEDS ORDERED: LORazepam 2 MG/1 ML VIAL IV ONE (02:30)
[2021-12-10] MEDS: CLORAZEPATE 3.75 MG TABLET PER TUBE SCH ×4 (02:49→22:46)
[2021-12-10] MEDS: ACETAMINOPHEN 325 MG TABLET PO PRN (02:50)
[2021-12-10 04:07] LABS: Basophils # 0.1 10*3/uL (0.0-0.2); Basophils % 0.6 % (0.0-0.8); Eosinophils # 0.2 10*3/uL (0.0-0.87); Eosinophils % 1.3 % (0.00-10.9); Hematocrit 33.2 VOL% (35.7-47.0); Immature Granulocytes % 0.7 %; Lymphocytes # 1.2 10*3/uL (1.4-4.0); Lymphocytes % 9.1 % (21.3-54.2); Mean Corpuscular HGB Conc 33.1 GM/DL (32-36); Mean Corpuscular Volume 98.5 FL (87-102); Mean Platelet Volume 12.8 FL (9.6-12.0); Monocytes # 0.8 10*3/uL (0.11-0.8); Monocytes % 6.1 % (1.7-12.7); Neutrophils % 82.2 % (38.7-73.9); Platelet Count 267 T/CUMM (130-400); Red Blood Count 3.37 MC/CUMM (3.8-5.5); Red Cell Distribution Width 11.8 % (9.3-17.3); White Blood Count 13.6 T/CUMM (4-12)
[2021-12-10 04:29] LABS: Albumin 2.7 G/DL (3.4-5.0); Calcium 8.9 MG/DL (8.5-10.1); Osmolality,Calculated 282.5 MOS/KG (273-304); Potassium 3.6 MMOL/L (3.5-5.1); Total Protein 8.1 G/DL (6.4-8.2)
[2021-12-10 05:13] LABS: Phosphorous 3.8 MG/DL (2.5-4.9)
[2021-12-10] MEDS: POTASSIUM CHLORIDE RIDER 10 MEQ/100 ML PREMIX IV PRN ×2 (05:25→06:20)
[2021-12-10] MEDS: MAGNESIUM SULF RIDER 2 GM/50 ML PREMIX IV PRN (05:25)
[2021-12-10] MEDS: THIAMINE 100 MG TABLET PO SCH (08:45)
[2021-12-10] MEDS: OLANZapine 5 MG TABLET PO SCH (08:45)
[2021-12-10] MEDS: carvediloL 25 MG TABLET PER TUBE SCH ×2 (08:45→22:09)
[2021-12-10] MEDS: MONTELUKAST 10 MG TABLET PO SCH (08:45)
[2021-12-10] MEDS: levETIRAcetam LIQUID 100 MG/ML 30 ML/BOTTLE PER TUBE SCH ×2 (08:45→22:28)
[2021-12-10] MEDS: allopurinoL 100 MG TABLET PO SCH ×3 (08:45→22:08)
[2021-12-10] MEDS: ERGOCALCIFEROL 50,000 UNIT CAPSULE PO SCH (08:45)
[2021-12-10] MEDS: FLUoxetine 10 MG CAPSULE PO SCH (08:45)
[2021-12-10] MEDS: MAGNESIUM OXIDE 400 MG TABLET PER TUBE SCH ×2 (08:45→22:09)
[2021-12-10] MEDS: FOLIC ACID 1 MG TABLET PO SCH (08:45)
[2021-12-10] MEDS: APIXABAN 5 MG TABLET PO SCH ×2 (08:45→22:08)
[2021-12-10] MEDS: amLODIPine 10 MG TABLET PO SCH (08:45)
[2021-12-10] MEDS: OMEPRAZOLE ODT 20 MG TABLET NG SCH (09:30)
[2021-12-10] MEDS: INSULIN REGULAR 100 UNIT/ML SUBCUT SCH ×2 (10:48→19:16)
[2021-12-10] MEDS: MULTIVITAMIN LIQUID (CENTRUM) 60 ML BOTTLE PEG SCH (10:49)
[2021-12-10] MEDS: LORazepam 2 MG/1 ML VIAL IV PRN (22:10)
[2021-12-10] MEDS: DESITIN 4OZ/NYSTATIN 15 GRAM MIXTURE PASTE TOP SCH (22:16)
[2021-12-11] MEDS: CLORAZEPATE 3.75 MG TABLET PER TUBE SCH ×4 (03:18→21:24)
[2021-12-11] MEDS: LORazepam 2 MG/1 ML VIAL IV PRN ×2 (04:32→22:50)
[2021-12-11 04:56] LABS: Basophils # 0.1 10*3/uL (0.0-0.2); Basophils % 0.6 % (0.0-0.8); Eosinophils # 0.3 10*3/uL (0.0-0.87); Eosinophils % 2.4 % (0.00-10.9); Hematocrit 35.2 VOL% (35.7-47.0); Hemoglobin 11.7 GM/DL (12.0-16.0); Immature Granulocytes % 0.4 %; Immature Granulocytes Absolute 0.06 #; Lymphocytes # 1.5 10*3/uL (1.4-4.0); Lymphocytes % 11.1 % (21.3-54.2); Mean Corpuscular HGB Conc 33.2 GM/DL (32-36); Mean Corpuscular Volume 97.8 FL (87-102); Monocytes # 0.8 10*3/uL (0.11-0.8); Monocytes % 6.3 % (1.7-12.7); Neutrophils % 79.2 % (38.7-73.9); Platelet Count 257 T/CUMM (130-400); Red Cell Distribution Width 11.6 % (9.3-17.3); White Blood Count 13.4 T/CUMM (4-12)
[2021-12-11 05:15] LABS: Platelet Estimate Normal
[2021-12-11 05:23] LABS: Albumin 2.9 G/DL (3.4-5.0); Bilirubin,Total 0.9 MG/DL (0.20-1.00); Calcium 9.7 MG/DL (8.5-10.1); Potassium 3.5 MMOL/L (3.5-5.1); Total Protein 8.2 G/DL (6.4-8.2)
[2021-12-11] MEDS: INSULIN REGULAR 100 UNIT/ML SUBCUT SCH ×2 (07:17→16:38)
[2021-12-11] MEDS: levETIRAcetam LIQUID 100 MG/ML 30 ML/BOTTLE PER TUBE SCH ×2 (08:34→21:27)
[2021-12-11] MEDS: MAGNESIUM SULF RIDER 2 GM/50 ML PREMIX IV PRN (08:34)
[2021-12-11] MEDS: allopurinoL 100 MG TABLET PO SCH ×3 (08:35→21:25)
[2021-12-11] MEDS: THIAMINE 100 MG TABLET PO SCH (08:35)
[2021-12-11] MEDS: POTASSIUM BICARB EFFERVESCENT 20 MEQ TAB.EFF PER TUBE PRN ×2 (08:35→11:05)
[2021-12-11] MEDS: MAGNESIUM OXIDE 400 MG TABLET PER TUBE SCH ×2 (08:35→21:24)
[2021-12-11] MEDS: OLANZapine 5 MG TABLET PO SCH (08:35)
[2021-12-11] MEDS: MULTIVITAMIN LIQUID (CENTRUM) 60 ML BOTTLE PEG SCH (08:35)
[2021-12-11] MEDS: OMEPRAZOLE ODT 20 MG TABLET NG SCH (08:35)
[2021-12-11] MEDS: FOLIC ACID 1 MG TABLET PO SCH (08:35)
[2021-12-11] MEDS: MONTELUKAST 10 MG TABLET PO SCH (08:35)
[2021-12-11] MEDS: amLODIPine 10 MG TABLET PO SCH (08:36)
[2021-12-11] MEDS: DESITIN 4OZ/NYSTATIN 15 GRAM MIXTURE PASTE TOP SCH ×2 (08:36→21:25)
[2021-12-11] MEDS: carvediloL 25 MG TABLET PER TUBE SCH ×2 (08:36→21:24)
[2021-12-11] MEDS: FLUoxetine 10 MG CAPSULE PO SCH (08:36)
[2021-12-12] MEDS: CLORAZEPATE 3.75 MG TABLET PER TUBE SCH ×4 (03:21→21:58)
[2021-12-12 05:31] LABS: Basophils # 0.1 10*3/uL (0.0-0.2); Basophils % 0.6 % (0.0-0.8); Eosinophils # 0.4 10*3/uL (0.0-0.87); Eosinophils % 3.2 % (0.00-10.9); Hematocrit 33.6 VOL% (35.7-47.0); Immature Granulocytes % 0.5 %; Immature Granulocytes Absolute 0.06 #; Lymphocytes # 1.9 10*3/uL (1.4-4.0); Mean Corpuscular HGB Conc 32.7 GM/DL (32-36); Mean Corpuscular Volume 99.7 FL (87-102); Mean Platelet Volume 11.1 FL (9.6-12.0); Monocytes # 0.9 10*3/uL (0.11-0.8); Monocytes % 7.6 % (1.7-12.7); Neutrophils % 72.1 % (38.7-73.9); Platelet Count 368 T/CUMM (130-400); Red Blood Count 3.37 MC/CUMM (3.8-5.5); Red Cell Distribution Width 11.7 % (9.3-17.3); White Blood Count 12.1 T/CUMM (4-12)
[2021-12-12] MEDS: LORazepam 2 MG/1 ML VIAL IV PRN ×2 (06:00→21:55)
[2021-12-12 06:01] LABS: Albumin 2.8 G/DL (3.4-5.0); Bilirubin,Total 0.6 MG/DL (0.20-1.00); Calcium 9.1 MG/DL (8.5-10.1); Osmolality,Calculated 274.7 MOS/KG (273-304); Total Protein 8.2 G/DL (6.4-8.2)
[2021-12-12] MEDS: INSULIN REGULAR 100 UNIT/ML SUBCUT SCH ×2 (07:54→15:45)
[2021-12-12] MEDS: THIAMINE 100 MG TABLET PO SCH (09:12)
[2021-12-12] MEDS: allopurinoL 100 MG TABLET PO SCH ×3 (09:16→20:16)
[2021-12-12] MEDS: MAGNESIUM OXIDE 400 MG TABLET PER TUBE SCH ×2 (09:16→20:16)
[2021-12-12] MEDS: levETIRAcetam LIQUID 100 MG/ML 30 ML/BOTTLE PER TUBE SCH ×2 (09:16→20:17)
[2021-12-12] MEDS: MONTELUKAST 10 MG TABLET PO SCH (09:16)
[2021-12-12] MEDS: OLANZapine 5 MG TABLET PO SCH (09:16)
[2021-12-12] MEDS: amLODIPine 10 MG TABLET PO SCH (09:16)
[2021-12-12] MEDS: OMEPRAZOLE ODT 20 MG TABLET NG SCH (09:16)
[2021-12-12] MEDS: FOLIC ACID 1 MG TABLET PO SCH (09:16)
[2021-12-12] MEDS: FLUoxetine 10 MG CAPSULE PO SCH (09:16)
[2021-12-12] MEDS: carvediloL 25 MG TABLET PER TUBE SCH ×2 (09:16→20:16)
[2021-12-12] MEDS: DESITIN 4OZ/NYSTATIN 15 GRAM MIXTURE PASTE TOP SCH ×2 (09:17→20:17)
[2021-12-12] MEDS: MULTIVITAMIN LIQUID (CENTRUM) 60 ML BOTTLE PEG SCH (09:18)
[2021-12-13 06:51] LABS: Basophils # 0.1 10*3/uL (0.0-0.2); Basophils % 0.8 % (0.0-0.8); Eosinophils # 0.4 10*3/uL (0.0-0.87); Eosinophils % 2.9 % (0.00-10.9); Hematocrit 36.2 VOL% (35.7-47.0); Hemoglobin 11.6 GM/DL (12.0-16.0); Immature Granulocytes % 0.5 %; Immature Granulocytes Absolute 0.06 #; Lymphocytes # 2.1 10*3/uL (1.4-4.0); Lymphocytes % 16.6 % (21.3-54.2); Mean Platelet Volume 12.6 FL (9.6-12.0); Monocytes # 0.7 10*3/uL (0.11-0.8); Monocytes % 5.8 % (1.7-12.7); Neutrophils % 73.4 % (38.7-73.9); Platelet Count 237 T/CUMM (130-400); Red Blood Count 3.62 MC/CUMM (3.8-5.5); Red Cell Distribution Width 11.6 % (9.3-17.3); White Blood Count 12.6 T/CUMM (4-12)
[2021-12-13] MEDS: CLORAZEPATE 3.75 MG TABLET PER TUBE SCH ×4 (06:59→20:42)
[2021-12-13] MEDS: INSULIN REGULAR 100 UNIT/ML SUBCUT SCH ×2 (07:29→16:54)
[2021-12-13 07:30] LABS: Calcium 9.7 MG/DL (8.5-10.1)
[2021-12-13] MEDS: DESITIN 4OZ/NYSTATIN 15 GRAM MIXTURE PASTE TOP SCH ×2 (09:07→20:42)
[2021-12-13] MEDS: MONTELUKAST 10 MG TABLET PO SCH (09:08)
[2021-12-13] MEDS: FOLIC ACID 1 MG TABLET PO SCH (09:08)
[2021-12-13] MEDS: OLANZapine 5 MG TABLET PO SCH (09:08)
[2021-12-13] MEDS: MULTIVITAMIN LIQUID (CENTRUM) 60 ML BOTTLE PEG SCH (09:08)
[2021-12-13] MEDS: FLUoxetine 10 MG CAPSULE PO SCH (09:08)
[2021-12-13] MEDS: carvediloL 25 MG TABLET PER TUBE SCH ×2 (09:08→20:41)
[2021-12-13] MEDS: OMEPRAZOLE ODT 20 MG TABLET NG SCH (09:08)
[2021-12-13] MEDS: allopurinoL 100 MG TABLET PO SCH ×3 (09:09→20:42)
[2021-12-13] MEDS: MAGNESIUM OXIDE 400 MG TABLET PER TUBE SCH ×2 (09:09→20:41)
[2021-12-13] MEDS: THIAMINE 100 MG TABLET PO SCH (09:09)
[2021-12-13] MEDS: amLODIPine 10 MG TABLET PO SCH (09:09)
[2021-12-13] MEDS: levETIRAcetam LIQUID 100 MG/ML 30 ML/BOTTLE PER TUBE SCH ×2 (11:24→20:43)
[2021-12-13] MEDS: LORazepam 2 MG/1 ML VIAL IV PRN (20:44)
[2021-12-14] MEDS: CLORAZEPATE 3.75 MG TABLET PER TUBE SCH ×4 (04:30→21:08)
[2021-12-14 05:34] LABS: Basophils # 0.1 10*3/uL (0.0-0.2); Basophils % 0.7 % (0.0-0.8); Eosinophils # 0.4 10*3/uL (0.0-0.87); Hematocrit 32.9 VOL% (35.7-47.0); Immature Granulocytes % 0.4 %; Immature Granulocytes Absolute 0.06 #; Lymphocytes # 2.1 10*3/uL (1.4-4.0); Mean Corpuscular HGB Conc 33.4 GM/DL (32-36); Mean Corpuscular Volume 97.9 FL (87-102); Mean Platelet Volume 11.3 FL (9.6-12.0); Monocytes # 0.9 10*3/uL (0.11-0.8); Monocytes % 6.9 % (1.7-12.7); Platelet Count 387 T/CUMM (130-400); Red Blood Count 3.36 MC/CUMM (3.8-5.5); Red Cell Distribution Width 11.5 % (9.3-17.3); White Blood Count 13.4 T/CUMM (4-12)
[2021-12-14 05:47] LABS: Phosphorous 5.4 MG/DL (2.5-4.9)
[2021-12-14 05:55] LABS: Albumin 2.7 G/DL (3.4-5.0); Bilirubin,Total 0.6 MG/DL (0.20-1.00); Calcium 9.9 MG/DL (8.5-10.1); Osmolality,Calculated 272.8 MOS/KG (273-304); Potassium 3.8 MMOL/L (3.5-5.1); Total Protein 8.1 G/DL (6.4-8.2)
[2021-12-14] MEDS: POTASSIUM BICARB EFFERVESCENT 20 MEQ TAB.EFF PER TUBE PRN (07:04)
[2021-12-14] MEDS: FLUoxetine 10 MG CAPSULE PO SCH (08:02)
[2021-12-14] MEDS: allopurinoL 100 MG TABLET PO SCH ×3 (08:03→21:08)
[2021-12-14] MEDS: MAGNESIUM OXIDE 400 MG TABLET PER TUBE SCH ×2 (08:03→21:08)
[2021-12-14] MEDS: carvediloL 25 MG TABLET PER TUBE SCH ×2 (08:03→21:08)
[2021-12-14] MEDS: FOLIC ACID 1 MG TABLET PO SCH (08:03)
[2021-12-14] MEDS: OLANZapine 5 MG TABLET PO SCH (08:03)
[2021-12-14] MEDS: amLODIPine 10 MG TABLET PO SCH (08:03)
[2021-12-14] MEDS: MONTELUKAST 10 MG TABLET PO SCH (08:03)
[2021-12-14] MEDS: THIAMINE 100 MG TABLET PO SCH (08:03)
[2021-12-14] MEDS: OMEPRAZOLE ODT 20 MG TABLET NG SCH (08:03)
[2021-12-14] MEDS: DESITIN 4OZ/NYSTATIN 15 GRAM MIXTURE PASTE TOP SCH ×2 (08:04→21:08)
[2021-12-14] MEDS: MULTIVITAMIN LIQUID (CENTRUM) 60 ML BOTTLE PEG SCH (08:06)
[2021-12-14] MEDS: levETIRAcetam LIQUID 100 MG/ML 30 ML/BOTTLE PER TUBE SCH ×2 (08:30→21:08)
[2021-12-14] MEDS: ALBUTEROL 1.25 MG/3 ML NEB RESP TX SCH ×2 (14:00→23:00)
[2021-12-14] MEDS: INSULIN REGULAR 100 UNIT/ML SUBCUT SCH (18:15)
[2021-12-14] MEDS: LORazepam 2 MG/1 ML VIAL IV PRN (21:09)
[2021-12-14] MEDS ORDERED: LORazepam 2 MG/1 ML VIAL IM ONE (22:48)
[2021-12-14] MEDS ORDERED: LORazepam 2 MG/1 ML VIAL ONE (22:56)
[2021-12-14] MEDS ORDERED: LORazepam 2 MG/1 ML VIAL IV ONE (23:30)
[2021-12-15] MEDS: CLORAZEPATE 3.75 MG TABLET PER TUBE SCH ×4 (03:30→21:19)
[2021-12-15 05:32] LABS: Basophils # 0.1 10*3/uL (0.0-0.2); Basophils % 0.5 % (0.0-0.8); Eosinophils # 0.3 10*3/uL (0.0-0.87); Eosinophils % 2.6 % (0.00-10.9); Hematocrit 34.6 VOL% (35.7-47.0); Hemoglobin 11.5 GM/DL (12.0-16.0); Immature Granulocytes % 0.6 %; Immature Granulocytes Absolute 0.08 #; Mean Corpuscular HGB Conc 33.2 GM/DL (32-36); Mean Corpuscular Volume 97.7 FL (87-102); Mean Platelet Volume 12.5 FL (9.6-12.0); Monocytes # 0.7 10*3/uL (0.11-0.8); Monocytes % 5.4 % (1.7-12.7); Neutrophils % 74.9 % (38.7-73.9); Platelet Count 289 T/CUMM (130-400); Red Blood Count 3.54 MC/CUMM (3.8-5.5); Red Cell Distribution Width 11.5 % (9.3-17.3); White Blood Count 12.6 T/CUMM (4-12)
[2021-12-15 05:55] LABS: Albumin 2.9 G/DL (3.4-5.0); Bilirubin,Total 0.7 MG/DL (0.20-1.00); Calcium 10.3 MG/DL (8.5-10.1); Potassium 3.7 MMOL/L (3.5-5.1); Total Protein 8.3 G/DL (6.4-8.2)
[2021-12-15] MEDS: POTASSIUM BICARB EFFERVESCENT 20 MEQ TAB.EFF PER TUBE PRN (06:15)
[2021-12-15] MEDS: ALBUTEROL 1.25 MG/3 ML NEB RESP TX SCH ×3 (07:35→23:00)
[2021-12-15] MEDS: INSULIN REGULAR 100 UNIT/ML SUBCUT SCH ×2 (08:03→15:33)
[2021-12-15] MEDS: MONTELUKAST 10 MG TABLET PO SCH (09:35)
[2021-12-15] MEDS: OMEPRAZOLE ODT 20 MG TABLET NG SCH (09:35)
[2021-12-15] MEDS: OLANZapine 5 MG TABLET PO SCH (09:35)
[2021-12-15] MEDS: THIAMINE 100 MG TABLET PO SCH (09:35)
[2021-12-15] MEDS: MAGNESIUM OXIDE 400 MG TABLET PER TUBE SCH ×2 (09:35→20:27)
[2021-12-15] MEDS: FOLIC ACID 1 MG TABLET PO SCH (09:36)
[2021-12-15] MEDS: carvediloL 25 MG TABLET PER TUBE SCH ×2 (09:36→20:27)
[2021-12-15] MEDS: amLODIPine 10 MG TABLET PO SCH (09:36)
[2021-12-15] MEDS: FLUoxetine 10 MG CAPSULE PO SCH (09:36)
[2021-12-15] MEDS: allopurinoL 100 MG TABLET PO SCH ×3 (09:36→20:28)
[2021-12-15] MEDS: MULTIVITAMIN LIQUID (CENTRUM) 60 ML BOTTLE PEG SCH ×2 (09:37→12:56)
[2021-12-15] MEDS: DESITIN 4OZ/NYSTATIN 15 GRAM MIXTURE PASTE TOP SCH ×2 (09:37→20:28)
[2021-12-15] MEDS: levETIRAcetam LIQUID 100 MG/ML 30 ML/BOTTLE PER TUBE SCH ×2 (09:37→20:28)
[2021-12-15] MEDS: LORazepam 2 MG/1 ML VIAL IV PRN ×2 (18:19→21:41)
[2021-12-16] MEDS: CLORAZEPATE 3.75 MG TABLET PER TUBE SCH ×4 (04:28→21:00)
[2021-12-16 05:12] LABS: Basophils # 0.1 10*3/uL (0.0-0.2); Basophils % 0.5 % (0.0-0.8); Eosinophils # 0.5 10*3/uL (0.0-0.87); Eosinophils % 5.4 % (0.00-10.9); Hematocrit 33.6 VOL% (35.7-47.0); Hemoglobin 11.1 GM/DL (12.0-16.0); Immature Granulocytes % 0.4 %; Immature Granulocytes Absolute 0.04 #; Lymphocytes # 2.1 10*3/uL (1.4-4.0); Lymphocytes % 22.2 % (21.3-54.2); Mean Corpuscular Volume 98.5 FL (87-102); Mean Platelet Volume 11.1 FL (9.6-12.0); Monocytes # 0.7 10*3/uL (0.11-0.8); Monocytes % 7.1 % (1.7-12.7); Neutrophils % 64.4 % (38.7-73.9); Platelet Count 335 T/CUMM (130-400); Red Blood Count 3.41 MC/CUMM (3.8-5.5); Red Cell Distribution Width 11.5 % (9.3-17.3); White Blood Count 9.6 T/CUMM (4-12)
[2021-12-16 05:27] LABS: Calcium 10.2 MG/DL (8.5-10.1); Potassium 4.2 MMOL/L (3.5-5.1)
[2021-12-16] MEDS: ALBUTEROL 1.25 MG/3 ML NEB RESP TX SCH ×3 (07:00→23:15)
[2021-12-16] MEDS: levETIRAcetam LIQUID 100 MG/ML 30 ML/BOTTLE PER TUBE SCH ×2 (08:22→20:18)
[2021-12-16] MEDS: MULTIVITAMIN LIQUID (CENTRUM) 60 ML BOTTLE PEG SCH (08:23)
[2021-12-16] MEDS: MAGNESIUM OXIDE 400 MG TABLET PER TUBE SCH ×2 (08:24→20:15)
[2021-12-16] MEDS: FOLIC ACID 1 MG TABLET PO SCH (08:24)
[2021-12-16] MEDS: MONTELUKAST 10 MG TABLET PO SCH (08:24)
[2021-12-16] MEDS: FLUoxetine 10 MG CAPSULE PO SCH (08:24)
[2021-12-16] MEDS: amLODIPine 10 MG TABLET PO SCH (08:24)
[2021-12-16] MEDS: THIAMINE 100 MG TABLET PO SCH (08:24)
[2021-12-16] MEDS: OMEPRAZOLE ODT 20 MG TABLET NG SCH (08:24)
[2021-12-16] MEDS: carvediloL 25 MG TABLET PER TUBE SCH ×2 (08:24→20:15)
[2021-12-16] MEDS: allopurinoL 100 MG TABLET PO SCH ×3 (08:24→20:15)
[2021-12-16] MEDS: OLANZapine 5 MG TABLET PO SCH (08:25)
[2021-12-16] MEDS: INSULIN REGULAR 100 UNIT/ML SUBCUT SCH ×2 (08:25→16:43)
[2021-12-16] MEDS: DESITIN 4OZ/NYSTATIN 15 GRAM MIXTURE PASTE TOP SCH ×2 (08:48→20:15)
[2021-12-16] MEDS: HALOPERIDOL 5 MG/ML AMP IV PRN ×2 (12:40→20:10)
[2021-12-17] MEDS: ALBUTEROL 1.25 MG/3 ML NEB RESP TX SCH ×3 (06:47→22:11)
[2021-12-17] MEDS: INSULIN REGULAR 100 UNIT/ML SUBCUT SCH ×2 (07:48→15:49)
[2021-12-17] MEDS: CLORAZEPATE 3.75 MG TABLET PER TUBE SCH ×2 (07:56→08:30)
[2021-12-17] MEDS: DESITIN 4OZ/NYSTATIN 15 GRAM MIXTURE PASTE TOP SCH ×2 (08:15→20:32)
[2021-12-17] MEDS: levETIRAcetam LIQUID 100 MG/ML 30 ML/BOTTLE PER TUBE SCH ×2 (08:15→20:32)
[2021-12-17] MEDS: MULTIVITAMIN LIQUID (CENTRUM) 60 ML BOTTLE PEG SCH (08:16)
[2021-12-17] MEDS: THIAMINE 100 MG TABLET PO SCH (08:17)
[2021-12-17] MEDS: allopurinoL 100 MG TABLET PO SCH ×3 (08:17→20:31)
[2021-12-17] MEDS: OMEPRAZOLE ODT 20 MG TABLET NG SCH (08:17)
[2021-12-17] MEDS: MONTELUKAST 10 MG TABLET PO SCH (08:17)
[2021-12-17] MEDS: amLODIPine 10 MG TABLET PO SCH (08:17)
[2021-12-17] MEDS: MAGNESIUM OXIDE 400 MG TABLET PER TUBE SCH ×2 (08:17→20:31)
[2021-12-17] MEDS: carvediloL 25 MG TABLET PER TUBE SCH ×2 (08:17→20:31)
[2021-12-17] MEDS: ERGOCALCIFEROL 50,000 UNIT CAPSULE PO SCH (08:17)
[2021-12-17] MEDS: FOLIC ACID 1 MG TABLET PO SCH (08:17)
[2021-12-17] MEDS: OLANZapine 5 MG TABLET PO SCH (08:17)
[2021-12-17] MEDS: FLUoxetine 10 MG CAPSULE PO SCH (08:18)
[2021-12-17] MEDS: HALOPERIDOL 5 MG/ML AMP IV PRN ×2 (08:18→17:31)
[2021-12-18] MEDS: HALOPERIDOL 5 MG/ML AMP IV PRN (03:12)
[2021-12-18 04:30] LABS: Basophils # 0.1 10*3/uL (0.0-0.2); Basophils % 0.6 % (0.0-0.8); Eosinophils # 0.6 10*3/uL (0.0-0.87); Eosinophils % 5.9 % (0.00-10.9); Hemoglobin 11.7 GM/DL (12.0-16.0); Immature Granulocytes % 0.5 %; Immature Granulocytes Absolute 0.05 #; Lymphocytes # 1.9 10*3/uL (1.4-4.0); Lymphocytes % 20.8 % (21.3-54.2); Mean Corpuscular HGB Conc 33.4 GM/DL (32-36); Mean Platelet Volume 12.6 FL (9.6-12.0); Monocytes # 0.9 10*3/uL (0.11-0.8); Monocytes % 9.3 % (1.7-12.7); Neutrophils % 62.9 % (38.7-73.9); Platelet Count 254 T/CUMM (130-400); Red Blood Count 3.61 MC/CUMM (3.8-5.5); Red Cell Distribution Width 11.3 % (9.3-17.3); White Blood Count 9.3 T/CUMM (4-12)
[2021-12-18 04:57] LABS: Calcium 9.7 MG/DL (8.5-10.1); Osmolality,Calculated 266.2 MOS/KG (273-304); Potassium 3.8 MMOL/L (3.5-5.1)
[2021-12-18] MEDS: ALBUTEROL 1.25 MG/3 ML NEB RESP TX SCH ×2 (07:12→21:01)
[2021-12-18] MEDS: FOLIC ACID 1 MG TABLET PO SCH (08:46)
[2021-12-18] MEDS: THIAMINE 100 MG TABLET PO SCH (08:46)
[2021-12-18] MEDS: carvediloL 25 MG TABLET PER TUBE SCH ×2 (08:46→21:30)
[2021-12-18] MEDS: MONTELUKAST 10 MG TABLET PO SCH (08:46)
[2021-12-18] MEDS: OMEPRAZOLE ODT 20 MG TABLET NG SCH (08:46)
[2021-12-18] MEDS: amLODIPine 10 MG TABLET PO SCH (08:46)
[2021-12-18] MEDS: FLUoxetine 10 MG CAPSULE PO SCH (08:46)
[2021-12-18] MEDS: OLANZapine 5 MG TABLET PO SCH (08:47)
[2021-12-18] MEDS: allopurinoL 100 MG TABLET PO SCH ×3 (08:47→21:30)
[2021-12-18] MEDS: DESITIN 4OZ/NYSTATIN 15 GRAM MIXTURE PASTE TOP SCH ×2 (08:47→21:30)
[2021-12-18] MEDS: MAGNESIUM OXIDE 400 MG TABLET PER TUBE SCH ×2 (08:47→21:30)
[2021-12-18] MEDS: MULTIVITAMIN LIQUID (CENTRUM) 60 ML BOTTLE PEG SCH (08:50)
[2021-12-18] MEDS: levETIRAcetam LIQUID 100 MG/ML 30 ML/BOTTLE PER TUBE SCH ×2 (08:50→21:30)
[2021-12-18] MEDS: INSULIN REGULAR 100 UNIT/ML SUBCUT SCH ×2 (15:58→16:00)
[2021-12-19] MEDS: ALBUTEROL 1.25 MG/3 ML NEB RESP TX SCH ×3 (00:20→15:35)
[2021-12-19] MEDS: DESITIN 4OZ/NYSTATIN 15 GRAM MIXTURE PASTE TOP SCH ×2 (07:00→21:40)
[2021-12-19] MEDS: levETIRAcetam LIQUID 100 MG/ML 30 ML/BOTTLE PER TUBE SCH ×2 (08:20→21:40)
[2021-12-19] MEDS: allopurinoL 100 MG TABLET PO SCH ×3 (08:20→21:40)
[2021-12-19] MEDS: FLUoxetine 10 MG CAPSULE PO SCH (08:20)
[2021-12-19] MEDS: carvediloL 25 MG TABLET PER TUBE SCH ×2 (08:20→21:40)
[2021-12-19] MEDS: MULTIVITAMIN LIQUID (CENTRUM) 60 ML BOTTLE PEG SCH (08:20)
[2021-12-19] MEDS: OLANZapine 5 MG TABLET PO SCH (08:20)
[2021-12-19] MEDS: OMEPRAZOLE ODT 20 MG TABLET NG SCH (08:20)
[2021-12-19] MEDS: FOLIC ACID 1 MG TABLET PO SCH (08:20)
[2021-12-19] MEDS: MONTELUKAST 10 MG TABLET PO SCH (08:20)
[2021-12-19] MEDS: THIAMINE 100 MG TABLET PO SCH (08:21)
[2021-12-19] MEDS: MAGNESIUM OXIDE 400 MG TABLET PER TUBE SCH ×2 (08:21→21:40)
[2021-12-19] MEDS: amLODIPine 10 MG TABLET PO SCH (08:21)
[2021-12-19] MEDS: INSULIN REGULAR 100 UNIT/ML SUBCUT SCH (17:37)
[2021-12-20] MEDS: ALBUTEROL 1.25 MG/3 ML NEB RESP TX SCH ×4 (00:09→23:30)
[2021-12-20] MEDS: MULTIVITAMIN LIQUID (CENTRUM) 60 ML BOTTLE PEG SCH (09:43)
[2021-12-20] MEDS: MONTELUKAST 10 MG TABLET PO SCH (09:43)
[2021-12-20] MEDS: OLANZapine 5 MG TABLET PO SCH (09:44)
[2021-12-20] MEDS: allopurinoL 100 MG TABLET PO SCH ×3 (09:44→21:58)
[2021-12-20] MEDS: carvediloL 25 MG TABLET PER TUBE SCH ×2 (09:44→21:58)
[2021-12-20] MEDS: MAGNESIUM OXIDE 400 MG TABLET PER TUBE SCH ×2 (09:44→21:58)
[2021-12-20] MEDS: THIAMINE 100 MG TABLET PO SCH (09:44)
[2021-12-20] MEDS: OMEPRAZOLE ODT 20 MG TABLET NG SCH (09:44)
[2021-12-20] MEDS: amLODIPine 10 MG TABLET PO SCH (09:44)
[2021-12-20] MEDS: FOLIC ACID 1 MG TABLET PO SCH (09:44)
[2021-12-20] MEDS: FLUoxetine 10 MG CAPSULE PO SCH (09:44)
[2021-12-20] MEDS: levETIRAcetam LIQUID 100 MG/ML 30 ML/BOTTLE PER TUBE SCH ×2 (09:45→22:00)
[2021-12-20] MEDS: DESITIN 4OZ/NYSTATIN 15 GRAM MIXTURE PASTE TOP SCH ×2 (11:00→22:26)
[2021-12-20] MEDS: INSULIN REGULAR 100 UNIT/ML SUBCUT SCH ×2 (11:44→16:18)
[2021-12-21] MEDS: HALOPERIDOL 5 MG/ML AMP IV PRN (01:01)
[2021-12-21 06:17] LABS: Basophils % 0.5 % (0.0-0.8); Eosinophils # 0.4 10*3/uL (0.0-0.87); Eosinophils % 4.1 % (0.00-10.9); Hematocrit 33.5 VOL% (35.7-47.0); Hemoglobin 11.4 GM/DL (12.0-16.0); Immature Granulocytes % 0.3 %; Immature Granulocytes Absolute 0.03 #; Lymphocytes # 2.1 10*3/uL (1.4-4.0); Mean Corpuscular Volume 95.2 FL (87-102); Mean Platelet Volume 13.2 FL (9.6-12.0); Monocytes # 0.8 10*3/uL (0.11-0.8); Monocytes % 9.3 % (1.7-12.7); Neutrophils % 61.8 % (38.7-73.9); Platelet Count 195 T/CUMM (130-400); Red Blood Count 3.52 MC/CUMM (3.8-5.5); Red Cell Distribution Width 11.3 % (9.3-17.3); White Blood Count 8.6 T/CUMM (4-12)
[2021-12-21 06:29] LABS: Calcium 9.8 MG/DL (8.5-10.1); Potassium 3.4 MMOL/L (3.5-5.1)
[2021-12-21] MEDS: ALBUTEROL 1.25 MG/3 ML NEB RESP TX SCH (07:40)
[2021-12-21] MEDS: MULTIVITAMIN LIQUID (CENTRUM) 60 ML BOTTLE PEG SCH (09:41)
[2021-12-21] MEDS: INSULIN REGULAR 100 UNIT/ML SUBCUT SCH ×2 (09:48→17:41)
[2021-12-21] MEDS: MAGNESIUM OXIDE 400 MG TABLET PER TUBE SCH ×2 (10:18→22:29)
[2021-12-21] MEDS: FOLIC ACID 1 MG TABLET PO SCH (10:18)
[2021-12-21] MEDS: OMEPRAZOLE ODT 20 MG TABLET NG SCH (10:18)
[2021-12-21] MEDS: carvediloL 25 MG TABLET PER TUBE SCH ×2 (10:18→22:29)
[2021-12-21] MEDS: amLODIPine 10 MG TABLET PO SCH (10:18)
[2021-12-21] MEDS: THIAMINE 100 MG TABLET PO SCH (10:19)
[2021-12-21] MEDS: FLUoxetine 10 MG CAPSULE PO SCH (10:19)
[2021-12-21] MEDS: DESITIN 4OZ/NYSTATIN 15 GRAM MIXTURE PASTE TOP SCH ×2 (10:19→22:34)
[2021-12-21] MEDS: MONTELUKAST 10 MG TABLET PO SCH (10:19)
[2021-12-21] MEDS: OLANZapine 5 MG TABLET PO SCH (10:19)
[2021-12-21] MEDS: allopurinoL 100 MG TABLET PO SCH ×3 (10:19→22:29)
[2021-12-21] MEDS: levETIRAcetam LIQUID 100 MG/ML 30 ML/BOTTLE PER TUBE SCH ×2 (12:32→22:29)
[2021-12-21] MEDS: HALOPERIDOL 5 MG/ML AMP IM PRN (18:06)
[2021-12-21] MEDS: APIXABAN 5 MG TABLET PO SCH (22:29)
[2021-12-22] MEDS: ACETAMINOPHEN 325 MG TABLET PO PRN ×2 (02:41→20:45)
[2021-12-22 05:08] LABS: Basophils # 0.1 10*3/uL (0.0-0.2); Basophils % 0.6 % (0.0-0.8); Eosinophils # 0.4 10*3/uL (0.0-0.87); Eosinophils % 4.8 % (0.00-10.9); Hematocrit 30.5 VOL% (35.7-47.0); Hemoglobin 10.3 GM/DL (12.0-16.0); Immature Granulocytes % 0.6 %; Immature Granulocytes Absolute 0.05 #; Lymphocytes # 2.1 10*3/uL (1.4-4.0); Lymphocytes % 23.5 % (21.3-54.2); Mean Corpuscular HGB Conc 33.8 GM/DL (32-36); Mean Corpuscular Volume 95.6 FL (87-102); Mean Platelet Volume 11.5 FL (9.6-12.0); Monocytes # 0.8 10*3/uL (0.11-0.8); Monocytes % 9.4 % (1.7-12.7); Neutrophils % 61.1 % (38.7-73.9); Platelet Count 294 T/CUMM (130-400); Red Blood Count 3.19 MC/CUMM (3.8-5.5); Red Cell Distribution Width 11.2 % (9.3-17.3); White Blood Count 8.8 T/CUMM (4-12)
[2021-12-22 05:25] LABS: Calcium 9.2 MG/DL (8.5-10.1); Osmolality,Calculated 272.1 MOS/KG (273-304); Potassium 3.6 MMOL/L (3.5-5.1)
[2021-12-22 05:45] LABS: Eosinophils 7 % (0-10); Lymphocytes 17 % (20-55); Platelet Estimate Adequate; Total Cells Counted 100
[2021-12-22] MEDS: ALBUTEROL 1.25 MG/3 ML NEB RESP TX SCH ×3 (07:15→23:08)
[2021-12-22] MEDS: THIAMINE 100 MG TABLET PO SCH (08:55)
[2021-12-22] MEDS: carvediloL 25 MG TABLET PER TUBE SCH ×2 (08:55→20:45)
[2021-12-22] MEDS: FLUoxetine 10 MG CAPSULE PO SCH (08:55)
[2021-12-22] MEDS: OLANZapine 5 MG TABLET PO SCH (08:55)
[2021-12-22] MEDS: amLODIPine 10 MG TABLET PO SCH (08:55)
[2021-12-22] MEDS: MONTELUKAST 10 MG TABLET PO SCH (08:55)
[2021-12-22] MEDS: APIXABAN 5 MG TABLET PO SCH ×2 (08:55→20:45)
[2021-12-22] MEDS: MAGNESIUM OXIDE 400 MG TABLET PER TUBE SCH ×2 (08:55→20:45)
[2021-12-22] MEDS: FOLIC ACID 1 MG TABLET PO SCH (08:55)
[2021-12-22] MEDS: allopurinoL 100 MG TABLET PO SCH ×3 (08:55→20:45)
[2021-12-22] MEDS: OMEPRAZOLE ODT 20 MG TABLET NG SCH (08:56)
[2021-12-22] MEDS: DESITIN 4OZ/NYSTATIN 15 GRAM MIXTURE PASTE TOP SCH ×2 (08:57→20:45)
[2021-12-22] MEDS: MULTIVITAMIN LIQUID (CENTRUM) 60 ML BOTTLE PEG SCH (08:57)
[2021-12-22] MEDS: levETIRAcetam LIQUID 100 MG/ML 30 ML/BOTTLE PER TUBE SCH ×2 (08:57→20:45)
[2021-12-22] MEDS: INSULIN REGULAR 100 UNIT/ML SUBCUT SCH ×2 (09:42→17:33)
[2021-12-22] MEDS: POTASSIUM BICARB EFFERVESCENT 20 MEQ TAB.EFF PER TUBE PRN ×2 (20:44→22:25)
[2021-12-23] MEDS: ALBUTEROL 1.25 MG/3 ML NEB RESP TX SCH ×2 (07:37→14:20)
[2021-12-23] MEDS: INSULIN REGULAR 100 UNIT/ML SUBCUT SCH ×2 (10:03→18:10)
[2021-12-23] MEDS: levETIRAcetam LIQUID 100 MG/ML 30 ML/BOTTLE PER TUBE SCH ×2 (10:03→20:33)
[2021-12-23] MEDS: MULTIVITAMIN LIQUID (CENTRUM) 60 ML BOTTLE PEG SCH (10:04)
[2021-12-23] MEDS: FLUoxetine 10 MG CAPSULE PO SCH (10:04)
[2021-12-23] MEDS: OMEPRAZOLE ODT 20 MG TABLET NG SCH (10:04)
[2021-12-23] MEDS: FOLIC ACID 1 MG TABLET PO SCH (10:04)
[2021-12-23] MEDS: carvediloL 25 MG TABLET PER TUBE SCH ×2 (10:05→20:33)
[2021-12-23] MEDS: MAGNESIUM OXIDE 400 MG TABLET PER TUBE SCH ×2 (10:05→20:33)
[2021-12-23] MEDS: allopurinoL 100 MG TABLET PO SCH ×3 (10:05→20:33)
[2021-12-23] MEDS: OLANZapine 5 MG TABLET PO SCH (10:05)
[2021-12-23] MEDS: THIAMINE 100 MG TABLET PO SCH (10:05)
[2021-12-23] MEDS: amLODIPine 10 MG TABLET PO SCH (10:05)
[2021-12-23] MEDS: APIXABAN 5 MG TABLET PO SCH ×2 (10:05→20:33)
[2021-12-23] MEDS: MONTELUKAST 10 MG TABLET PO SCH (10:06)
[2021-12-23] MEDS: DESITIN 4OZ/NYSTATIN 15 GRAM MIXTURE PASTE TOP SCH ×2 (10:07→20:33)
[2021-12-23] MEDS: ACETAMINOPHEN 325 MG TABLET PO PRN (20:33)
[2021-12-23] MEDS: HALOPERIDOL 5 MG/ML AMP IM PRN (20:34)
[2021-12-24] MEDS: ALBUTEROL 1.25 MG/3 ML NEB RESP TX SCH ×5 (00:45→23:10)
[2021-12-24] MEDS: HALOPERIDOL 5 MG/ML AMP IM PRN ×3 (05:49→20:00)
[2021-12-24] MEDS: INSULIN REGULAR 100 UNIT/ML SUBCUT SCH ×2 (07:40→16:54)
[2021-12-24] MEDS: MAGNESIUM OXIDE 400 MG TABLET PER TUBE SCH ×2 (10:32→20:00)
[2021-12-24] MEDS: ERGOCALCIFEROL 50,000 UNIT CAPSULE PO SCH (10:32)
[2021-12-24] MEDS: allopurinoL 100 MG TABLET PO SCH ×3 (10:32→20:00)
[2021-12-24] MEDS: OMEPRAZOLE ODT 20 MG TABLET NG SCH (10:32)
[2021-12-24] MEDS: APIXABAN 5 MG TABLET PO SCH ×2 (10:33→20:00)
[2021-12-24] MEDS: amLODIPine 10 MG TABLET PO SCH (10:33)
[2021-12-24] MEDS: carvediloL 25 MG TABLET PER TUBE SCH ×2 (10:33→20:00)
[2021-12-24] MEDS: THIAMINE 100 MG TABLET PO SCH (10:33)
[2021-12-24] MEDS: FOLIC ACID 1 MG TABLET PO SCH (10:33)
[2021-12-24] MEDS: levETIRAcetam LIQUID 100 MG/ML 30 ML/BOTTLE PER TUBE SCH ×2 (10:33→20:00)
[2021-12-24] MEDS: MONTELUKAST 10 MG TABLET PO SCH (10:33)
[2021-12-24] MEDS: FLUoxetine 10 MG CAPSULE PO SCH (10:33)
[2021-12-24] MEDS: DESITIN 4OZ/NYSTATIN 15 GRAM MIXTURE PASTE TOP SCH ×2 (10:34→20:00)
[2021-12-24] MEDS: MULTIVITAMIN LIQUID (CENTRUM) 60 ML BOTTLE PEG SCH (10:34)
[2021-12-24] MEDS: OLANZapine 5 MG TABLET PO SCH ×2 (11:04→11:07)
[2021-12-25] MEDS: HALOPERIDOL 5 MG/ML AMP IM PRN ×3 (05:35→23:56)
[2021-12-25 06:15] LABS: Calcium 9.1 MG/DL (8.5-10.1); Osmolality,Calculated 274.5 MOS/KG (273-304); Potassium 3.2 MMOL/L (3.5-5.1)
[2021-12-25] MEDS: ALBUTEROL 1.25 MG/3 ML NEB RESP TX SCH ×3 (07:27→23:20)
[2021-12-25] MEDS: amLODIPine 10 MG TABLET PO SCH (08:43)
[2021-12-25] MEDS: carvediloL 25 MG TABLET PER TUBE SCH ×2 (08:43→20:46)
[2021-12-25] MEDS: INSULIN REGULAR 100 UNIT/ML SUBCUT SCH ×2 (08:43→16:16)
[2021-12-25] MEDS: MULTIVITAMIN LIQUID (CENTRUM) 60 ML BOTTLE PEG SCH (08:46)
[2021-12-25] MEDS: levETIRAcetam LIQUID 100 MG/ML 30 ML/BOTTLE PER TUBE SCH ×2 (08:46→21:15)
[2021-12-25] MEDS: FOLIC ACID 1 MG TABLET PO SCH (08:47)
[2021-12-25] MEDS: POTASSIUM BICARB EFFERVESCENT 20 MEQ TAB.EFF PER TUBE PRN ×4 (08:47→15:27)
[2021-12-25] MEDS: OLANZapine 5 MG TABLET PO SCH (08:47)
[2021-12-25] MEDS: MONTELUKAST 10 MG TABLET PO SCH (08:48)
[2021-12-25] MEDS: THIAMINE 100 MG TABLET PO SCH (08:49)
[2021-12-25] MEDS: allopurinoL 100 MG TABLET PO SCH ×3 (08:49→20:46)
[2021-12-25] MEDS: MAGNESIUM OXIDE 400 MG TABLET PER TUBE SCH ×2 (08:49→20:46)
[2021-12-25] MEDS: OMEPRAZOLE ODT 20 MG TABLET NG SCH (08:49)
[2021-12-25] MEDS: FLUoxetine 10 MG CAPSULE PO SCH (08:50)
[2021-12-25] MEDS: APIXABAN 5 MG TABLET PO SCH ×2 (08:50→20:46)
[2021-12-25] MEDS: DESITIN 4OZ/NYSTATIN 15 GRAM MIXTURE PASTE TOP SCH ×2 (08:51→21:16)
[2021-12-26] MEDS: ALBUTEROL 1.25 MG/3 ML NEB RESP TX SCH ×3 (07:23→23:06)
[2021-12-26] MEDS: INSULIN REGULAR 100 UNIT/ML SUBCUT SCH ×2 (10:44→15:56)
[2021-12-26] MEDS: levETIRAcetam LIQUID 100 MG/ML 30 ML/BOTTLE PER TUBE SCH ×2 (10:45→20:55)
[2021-12-26] MEDS: FOLIC ACID 1 MG TABLET PO SCH (10:45)
[2021-12-26] MEDS: carvediloL 25 MG TABLET PER TUBE SCH ×2 (10:45→20:55)
[2021-12-26] MEDS: APIXABAN 5 MG TABLET PO SCH ×2 (10:45→20:55)
[2021-12-26] MEDS: OMEPRAZOLE ODT 20 MG TABLET NG SCH (10:46)
[2021-12-26] MEDS: FLUoxetine 10 MG CAPSULE PO SCH (10:46)
[2021-12-26] MEDS: OLANZapine 5 MG TABLET PO SCH (10:47)
[2021-12-26] MEDS: allopurinoL 100 MG TABLET PO SCH ×3 (10:47→20:55)
[2021-12-26] MEDS: MONTELUKAST 10 MG TABLET PO SCH (10:47)
[2021-12-26] MEDS: THIAMINE 100 MG TABLET PO SCH (10:47)
[2021-12-26] MEDS: MAGNESIUM OXIDE 400 MG TABLET PER TUBE SCH ×2 (10:53→20:55)
[2021-12-26] MEDS: MULTIVITAMIN LIQUID (CENTRUM) 60 ML BOTTLE PEG SCH (10:58)
[2021-12-26] MEDS: DESITIN 4OZ/NYSTATIN 15 GRAM MIXTURE PASTE TOP SCH ×2 (10:58→20:55)
[2021-12-27] MEDS: ALBUTEROL 1.25 MG/3 ML NEB RESP TX SCH ×3 (07:18→23:32)
[2021-12-27] MEDS: HALOPERIDOL 5 MG/ML AMP IM PRN ×3 (08:32→22:55)
[2021-12-27] MEDS: INSULIN REGULAR 100 UNIT/ML SUBCUT SCH ×2 (09:55→16:47)
[2021-12-27] MEDS: MULTIVITAMIN LIQUID (CENTRUM) 60 ML BOTTLE PEG SCH (09:56)
[2021-12-27] MEDS: APIXABAN 5 MG TABLET PO SCH ×2 (09:57→21:45)
[2021-12-27] MEDS: THIAMINE 100 MG TABLET PO SCH (09:57)
[2021-12-27] MEDS: OMEPRAZOLE ODT 20 MG TABLET NG SCH (09:57)
[2021-12-27] MEDS: carvediloL 25 MG TABLET PER TUBE SCH ×2 (09:57→21:45)
[2021-12-27] MEDS: FLUoxetine 10 MG CAPSULE PO SCH (09:57)
[2021-12-27] MEDS: MAGNESIUM OXIDE 400 MG TABLET PER TUBE SCH ×2 (09:57→21:45)
[2021-12-27] MEDS: MONTELUKAST 10 MG TABLET PO SCH (09:57)
[2021-12-27] MEDS: FOLIC ACID 1 MG TABLET PO SCH (09:57)
[2021-12-27] MEDS: OLANZapine 5 MG TABLET PO SCH (09:58)
[2021-12-27] MEDS: levETIRAcetam LIQUID 100 MG/ML 30 ML/BOTTLE PER TUBE SCH ×2 (09:58→21:45)
[2021-12-27] MEDS: DESITIN 4OZ/NYSTATIN 15 GRAM MIXTURE PASTE TOP SCH ×2 (09:58→21:45)
[2021-12-27] MEDS: allopurinoL 100 MG TABLET PO SCH ×3 (09:58→21:45)
[2021-12-28] MEDS: ALBUTEROL 1.25 MG/3 ML NEB RESP TX SCH ×3 (07:36→23:19)
[2021-12-28] MEDS: FOLIC ACID 1 MG TABLET PO SCH (08:50)
[2021-12-28] MEDS: THIAMINE 100 MG TABLET PO SCH (08:50)
[2021-12-28] MEDS: MAGNESIUM OXIDE 400 MG TABLET PER TUBE SCH ×2 (08:50→20:05)
[2021-12-28] MEDS: carvediloL 25 MG TABLET PER TUBE SCH ×2 (08:50→20:05)
[2021-12-28] MEDS: FLUoxetine 10 MG CAPSULE PO SCH (08:50)
[2021-12-28] MEDS: allopurinoL 100 MG TABLET PO SCH ×3 (08:50→20:05)
[2021-12-28] MEDS: OMEPRAZOLE ODT 20 MG TABLET NG SCH (08:51)
[2021-12-28] MEDS: APIXABAN 5 MG TABLET PO SCH ×2 (08:51→20:05)
[2021-12-28] MEDS: MULTIVITAMIN LIQUID (CENTRUM) 60 ML BOTTLE PEG SCH (08:51)
[2021-12-28] MEDS: OLANZapine 5 MG TABLET PO SCH (08:51)
[2021-12-28] MEDS: MONTELUKAST 10 MG TABLET PO SCH (08:51)
[2021-12-28] MEDS: levETIRAcetam LIQUID 100 MG/ML 30 ML/BOTTLE PER TUBE SCH ×2 (08:52→20:05)
[2021-12-28] MEDS: INSULIN REGULAR 100 UNIT/ML SUBCUT SCH ×2 (09:31→16:38)
[2021-12-28] MEDS: DESITIN 4OZ/NYSTATIN 15 GRAM MIXTURE PASTE TOP SCH ×2 (10:39→20:05)
[2021-12-28] MEDS: HALOPERIDOL 5 MG/ML AMP IM PRN (19:35)
[2021-12-29] MEDS: HALOPERIDOL 5 MG/ML AMP IM PRN (03:35)
[2021-12-29] MEDS: ALBUTEROL 1.25 MG/3 ML NEB RESP TX SCH ×3 (07:26→20:05)
[2021-12-29] MEDS: OLANZapine 5 MG TABLET PO SCH (09:45)
[2021-12-29] MEDS: FOLIC ACID 1 MG TABLET PO SCH (09:45)
[2021-12-29] MEDS: THIAMINE 100 MG TABLET PO SCH (09:45)
[2021-12-29] MEDS: MAGNESIUM OXIDE 400 MG TABLET PER TUBE SCH ×2 (09:45→21:26)
[2021-12-29] MEDS: OMEPRAZOLE ODT 20 MG TABLET NG SCH (09:45)
[2021-12-29] MEDS: FLUoxetine 10 MG CAPSULE PO SCH (09:45)
[2021-12-29] MEDS: carvediloL 25 MG TABLET PER TUBE SCH ×2 (09:45→21:25)
[2021-12-29] MEDS: MONTELUKAST 10 MG TABLET PO SCH (09:45)
[2021-12-29] MEDS: APIXABAN 5 MG TABLET PO SCH ×2 (09:45→21:25)
[2021-12-29] MEDS: INSULIN REGULAR 100 UNIT/ML SUBCUT SCH ×2 (09:46→17:06)
[2021-12-29] MEDS: allopurinoL 100 MG TABLET PO SCH ×3 (09:46→21:25)
[2021-12-29] MEDS: DESITIN 4OZ/NYSTATIN 15 GRAM MIXTURE PASTE TOP SCH ×2 (11:05→21:26)
[2021-12-29] MEDS: levETIRAcetam LIQUID 100 MG/ML 30 ML/BOTTLE PER TUBE SCH ×2 (11:05→21:26)
[2021-12-29] MEDS: MULTIVITAMIN LIQUID (CENTRUM) 60 ML BOTTLE PEG SCH (11:05)
[2021-12-30] MEDS: ALBUTEROL 1.25 MG/3 ML NEB RESP TX SCH ×4 (00:05→23:23)
[2021-12-30] MEDS: APIXABAN 5 MG TABLET PO SCH ×2 (09:22→20:24)
[2021-12-30] MEDS: carvediloL 25 MG TABLET PER TUBE SCH ×2 (09:22→20:24)
[2021-12-30] MEDS: MONTELUKAST 10 MG TABLET PO SCH (09:22)
[2021-12-30] MEDS: allopurinoL 100 MG TABLET PO SCH ×3 (09:22→20:24)
[2021-12-30] MEDS: OMEPRAZOLE ODT 20 MG TABLET NG SCH (09:22)
[2021-12-30] MEDS: MAGNESIUM OXIDE 400 MG TABLET PER TUBE SCH ×2 (09:22→20:24)
[2021-12-30] MEDS: levETIRAcetam LIQUID 100 MG/ML 30 ML/BOTTLE PER TUBE SCH ×2 (09:23→20:25)
[2021-12-30] MEDS: MULTIVITAMIN LIQUID (CENTRUM) 60 ML BOTTLE PEG SCH (09:23)
[2021-12-30] MEDS: FLUoxetine 10 MG CAPSULE PO SCH (09:23)
[2021-12-30] MEDS: OLANZapine 5 MG TABLET PO SCH (09:23)
[2021-12-30] MEDS: THIAMINE 100 MG TABLET PO SCH (09:23)
[2021-12-30] MEDS: DESITIN 4OZ/NYSTATIN 15 GRAM MIXTURE PASTE TOP SCH ×2 (09:24→20:26)
[2021-12-30] MEDS: INSULIN REGULAR 100 UNIT/ML SUBCUT SCH ×2 (09:27→17:08)
[2021-12-30] MEDS: FOLIC ACID 1 MG TABLET PO SCH (09:28)
[2021-12-30] MEDS: HALOPERIDOL 5 MG/ML AMP IM PRN (20:26)
[2021-12-31] MEDS: HALOPERIDOL 5 MG/ML AMP IM PRN ×2 (03:13→21:45)
[2021-12-31] MEDS: ALBUTEROL 1.25 MG/3 ML NEB RESP TX SCH ×2 (07:20→15:20)
[2021-12-31] MEDS: OLANZapine 5 MG TABLET PO SCH (08:34)
[2021-12-31] MEDS: FOLIC ACID 1 MG TABLET PO SCH (08:34)
[2021-12-31] MEDS: MAGNESIUM OXIDE 400 MG TABLET PER TUBE SCH ×2 (08:35→20:00)
[2021-12-31] MEDS: MONTELUKAST 10 MG TABLET PO SCH (08:35)
[2021-12-31] MEDS: THIAMINE 100 MG TABLET PO SCH (08:35)
[2021-12-31] MEDS: carvediloL 25 MG TABLET PER TUBE SCH ×2 (08:35→20:00)
[2021-12-31] MEDS: FLUoxetine 10 MG CAPSULE PO SCH (08:35)
[2021-12-31] MEDS: ERGOCALCIFEROL 50,000 UNIT CAPSULE PO SCH (08:35)
[2021-12-31] MEDS: allopurinoL 100 MG TABLET PO SCH ×3 (08:35→20:00)
[2021-12-31] MEDS: APIXABAN 5 MG TABLET PO SCH ×2 (08:35→20:00)
[2021-12-31] MEDS: OMEPRAZOLE ODT 20 MG TABLET NG SCH (08:35)
[2021-12-31] MEDS: levETIRAcetam LIQUID 100 MG/ML 30 ML/BOTTLE PER TUBE SCH ×2 (08:36→20:00)
[2021-12-31] MEDS: DESITIN 4OZ/NYSTATIN 15 GRAM MIXTURE PASTE TOP SCH ×2 (08:36→20:00)
[2021-12-31] MEDS: INSULIN REGULAR 100 UNIT/ML SUBCUT SCH ×2 (08:36→16:12)
[2021-12-31] MEDS: MULTIVITAMIN LIQUID (CENTRUM) 60 ML BOTTLE PEG SCH (08:36)
[2021-12-31] MEDS: ACETAMINOPHEN 325 MG TABLET PO PRN (18:04)
[2022-01-01] MEDS: OMEPRAZOLE ODT 20 MG TABLET NG SCH (09:09)
[2022-01-01] MEDS: carvediloL 25 MG TABLET PER TUBE SCH ×2 (09:09→23:51)
[2022-01-01] MEDS: FOLIC ACID 1 MG TABLET PO SCH (09:09)
[2022-01-01] MEDS: MONTELUKAST 10 MG TABLET PO SCH (09:09)
[2022-01-01] MEDS: THIAMINE 100 MG TABLET PO SCH (09:09)
[2022-01-01] MEDS: APIXABAN 5 MG TABLET PO SCH ×2 (09:09→23:51)
[2022-01-01] MEDS: OLANZapine 5 MG TABLET PO SCH (09:09)
[2022-01-01] MEDS: allopurinoL 100 MG TABLET PO SCH ×3 (09:09→23:51)
[2022-01-01] MEDS: MAGNESIUM OXIDE 400 MG TABLET PER TUBE SCH ×2 (09:09→23:51)
[2022-01-01] MEDS: FLUoxetine 10 MG CAPSULE PO SCH (09:09)
[2022-01-01] MEDS: MULTIVITAMIN LIQUID (CENTRUM) 60 ML BOTTLE PEG SCH (09:12)
[2022-01-01] MEDS: INSULIN REGULAR 100 UNIT/ML SUBCUT SCH ×2 (09:12→18:15)
[2022-01-01] MEDS: DESITIN 4OZ/NYSTATIN 15 GRAM MIXTURE PASTE TOP SCH ×2 (09:13→23:52)
[2022-01-01] MEDS: levETIRAcetam LIQUID 100 MG/ML 30 ML/BOTTLE PER TUBE SCH ×2 (09:13→23:52)
[2022-01-02] MEDS: carvediloL 25 MG TABLET PER TUBE SCH ×2 (09:47→23:52)
[2022-01-02] MEDS: OMEPRAZOLE ODT 20 MG TABLET NG SCH (09:47)
[2022-01-02] MEDS: APIXABAN 5 MG TABLET PO SCH ×2 (09:47→23:52)
[2022-01-02] MEDS: allopurinoL 100 MG TABLET PO SCH ×3 (09:47→23:52)
[2022-01-02] MEDS: MONTELUKAST 10 MG TABLET PO SCH (09:47)
[2022-01-02] MEDS: FOLIC ACID 1 MG TABLET PO SCH (09:47)
[2022-01-02] MEDS: OLANZapine 5 MG TABLET PO SCH (09:47)
[2022-01-02] MEDS: THIAMINE 100 MG TABLET PO SCH (09:47)
[2022-01-02] MEDS: MAGNESIUM OXIDE 400 MG TABLET PER TUBE SCH ×2 (09:47→23:53)
[2022-01-02] MEDS: levETIRAcetam LIQUID 100 MG/ML 30 ML/BOTTLE PER TUBE SCH ×2 (09:48→23:53)
[2022-01-02] MEDS: FLUoxetine 10 MG CAPSULE PO SCH (09:48)
[2022-01-02] MEDS: MULTIVITAMIN LIQUID (CENTRUM) 60 ML BOTTLE PEG SCH (09:48)
[2022-01-02] MEDS: INSULIN REGULAR 100 UNIT/ML SUBCUT SCH ×2 (09:50→18:36)
[2022-01-02] MEDS: DESITIN 4OZ/NYSTATIN 15 GRAM MIXTURE PASTE TOP SCH ×2 (09:52→23:53)
[2022-01-02] MEDS: HALOPERIDOL 5 MG/ML AMP IM PRN (14:51)
[2022-01-03] MEDS: ACETAMINOPHEN 325 MG TABLET PO PRN (06:20)
[2022-01-03] MEDS: MONTELUKAST 10 MG TABLET PO SCH (08:39)
[2022-01-03] MEDS: OLANZapine 5 MG TABLET PO SCH (08:39)
[2022-01-03] MEDS: carvediloL 25 MG TABLET PER TUBE SCH ×2 (08:39→23:31)
[2022-01-03] MEDS: MAGNESIUM OXIDE 400 MG TABLET PER TUBE SCH ×2 (08:39→23:30)
[2022-01-03] MEDS: FLUoxetine 10 MG CAPSULE PO SCH (08:39)
[2022-01-03] MEDS: APIXABAN 5 MG TABLET PO SCH ×2 (08:39→23:31)
[2022-01-03] MEDS: INSULIN REGULAR 100 UNIT/ML SUBCUT SCH ×2 (08:39→16:22)
[2022-01-03] MEDS: THIAMINE 100 MG TABLET PO SCH (08:39)
[2022-01-03] MEDS: DESITIN 4OZ/NYSTATIN 15 GRAM MIXTURE PASTE TOP SCH ×2 (08:40→23:31)
[2022-01-03] MEDS: FOLIC ACID 1 MG TABLET PO SCH (08:40)
[2022-01-03] MEDS: levETIRAcetam LIQUID 100 MG/ML 30 ML/BOTTLE PER TUBE SCH ×2 (08:40→23:31)
[2022-01-03] MEDS: allopurinoL 100 MG TABLET PO SCH ×3 (08:40→23:30)
[2022-01-03] MEDS: MULTIVITAMIN LIQUID (CENTRUM) 60 ML BOTTLE PEG SCH (08:40)
[2022-01-03] MEDS: OMEPRAZOLE ODT 20 MG TABLET NG SCH (08:43)
[2022-01-04] MEDS: APIXABAN 5 MG TABLET PO SCH ×2 (09:00→20:10)
[2022-01-04] MEDS: THIAMINE 100 MG TABLET PO SCH (09:01)
[2022-01-04] MEDS: FOLIC ACID 1 MG TABLET PO SCH (09:01)
[2022-01-04] MEDS: OMEPRAZOLE ODT 20 MG TABLET NG SCH (09:01)
[2022-01-04] MEDS: carvediloL 25 MG TABLET PER TUBE SCH ×2 (09:01→20:10)
[2022-01-04] MEDS: MONTELUKAST 10 MG TABLET PO SCH (09:01)
[2022-01-04] MEDS: OLANZapine 5 MG TABLET PO SCH (09:01)
[2022-01-04] MEDS: FLUoxetine 10 MG CAPSULE PO SCH (09:02)
[2022-01-04] MEDS: MULTIVITAMIN LIQUID (CENTRUM) 60 ML BOTTLE PEG SCH (09:02)
[2022-01-04] MEDS: DESITIN 4OZ/NYSTATIN 15 GRAM MIXTURE PASTE TOP SCH ×2 (09:02→20:10)
[2022-01-04] MEDS: INSULIN REGULAR 100 UNIT/ML SUBCUT SCH ×2 (09:02→16:14)
[2022-01-04] MEDS: levETIRAcetam LIQUID 100 MG/ML 30 ML/BOTTLE PER TUBE SCH (09:02)
[2022-01-04] MEDS: MAGNESIUM OXIDE 400 MG TABLET PER TUBE SCH ×2 (09:02→20:10)
[2022-01-04] MEDS: allopurinoL 100 MG TABLET PO SCH ×3 (09:02→20:10)
[2022-01-04] MEDS: NEOMYCIN/POLYMYXIN/BACITRACIN OINT 0.9 GM PACK TOP SCH ×2 (09:49→20:10)
[2022-01-04] MEDS: levETIRAcetam 500 MG TABLET PO SCH (20:10)
[2022-01-04] MEDS: HALOPERIDOL 5 MG/ML AMP IM PRN (20:10)
[2022-01-04] MEDS: risperiDONE 1 MG TABLET PO SCH (20:10)
[2022-01-05] MEDS: OLANZapine 5 MG TABLET PO SCH (08:29)
[2022-01-05] MEDS: levETIRAcetam 500 MG TABLET PO SCH ×2 (08:29→21:27)
[2022-01-05] MEDS: OMEPRAZOLE ODT 20 MG TABLET NG SCH (08:29)
[2022-01-05] MEDS: MAGNESIUM OXIDE 400 MG TABLET PER TUBE SCH ×2 (08:29→21:27)
[2022-01-05] MEDS: THIAMINE 100 MG TABLET PO SCH (08:29)
[2022-01-05] MEDS: FLUoxetine 10 MG CAPSULE PO SCH (08:30)
[2022-01-05] MEDS: carvediloL 25 MG TABLET PER TUBE SCH ×2 (08:30→21:27)
[2022-01-05] MEDS: APIXABAN 5 MG TABLET PO SCH ×2 (08:30→21:27)
[2022-01-05] MEDS: MONTELUKAST 10 MG TABLET PO SCH (08:30)
[2022-01-05] MEDS: FOLIC ACID 1 MG TABLET PO SCH (08:30)
[2022-01-05] MEDS: allopurinoL 100 MG TABLET PO SCH ×3 (08:30→21:27)
[2022-01-05] MEDS: INSULIN REGULAR 100 UNIT/ML SUBCUT SCH ×2 (08:30→16:04)
[2022-01-05] MEDS: NEOMYCIN/POLYMYXIN/BACITRACIN OINT 0.9 GM PACK TOP SCH (08:30)
[2022-01-05] MEDS: MULTIVITAMIN (BEROCCA) TABLET PO SCH (08:30)
[2022-01-05] MEDS: DESITIN 4OZ/NYSTATIN 15 GRAM MIXTURE PASTE TOP SCH ×2 (08:31→21:27)
[2022-01-05] MEDS: risperiDONE 1 MG TABLET PO SCH (21:27)
[2022-01-06] MEDS: INSULIN REGULAR 100 UNIT/ML SUBCUT SCH ×2 (08:56→17:32)
[2022-01-06] MEDS: MONTELUKAST 10 MG TABLET PO SCH (10:01)
[2022-01-06] MEDS: FOLIC ACID 1 MG TABLET PO SCH (10:01)
[2022-01-06] MEDS: OLANZapine 5 MG TABLET PO SCH (10:01)
[2022-01-06] MEDS: MAGNESIUM OXIDE 400 MG TABLET PER TUBE SCH ×2 (10:01→22:12)
[2022-01-06] MEDS: OMEPRAZOLE ODT 20 MG TABLET NG SCH (10:01)
[2022-01-06] MEDS: FLUoxetine 10 MG CAPSULE PO SCH (10:01)
[2022-01-06] MEDS: MULTIVITAMIN (BEROCCA) TABLET PO SCH (10:01)
[2022-01-06] MEDS: levETIRAcetam 500 MG TABLET PO SCH ×2 (10:01→22:12)
[2022-01-06] MEDS: carvediloL 25 MG TABLET PER TUBE SCH ×2 (10:02→22:12)
[2022-01-06] MEDS: THIAMINE 100 MG TABLET PO SCH (10:02)
[2022-01-06] MEDS: allopurinoL 100 MG TABLET PO SCH ×3 (10:02→22:12)
[2022-01-06] MEDS: APIXABAN 5 MG TABLET PO SCH ×2 (10:05→22:12)
[2022-01-06] MEDS: DESITIN 4OZ/NYSTATIN 15 GRAM MIXTURE PASTE TOP SCH ×2 (14:30→22:13)
[2022-01-06] MEDS: risperiDONE 1 MG TABLET PO SCH (22:12)
[2022-01-07] MEDS: allopurinoL 100 MG TABLET PO SCH ×3 (10:07→21:57)
[2022-01-07] MEDS: MAGNESIUM OXIDE 400 MG TABLET PER TUBE SCH ×2 (10:07→21:58)
[2022-01-07] MEDS: OMEPRAZOLE ODT 20 MG TABLET NG SCH (10:07)
[2022-01-07] MEDS: APIXABAN 5 MG TABLET PO SCH ×2 (10:07→21:57)
[2022-01-07] MEDS: MONTELUKAST 10 MG TABLET PO SCH (10:07)
[2022-01-07] MEDS: levETIRAcetam 500 MG TABLET PO SCH ×2 (10:07→21:57)
[2022-01-07] MEDS: FLUoxetine 10 MG CAPSULE PO SCH (10:07)
[2022-01-07] MEDS: MULTIVITAMIN (BEROCCA) TABLET PO SCH (10:07)
[2022-01-07] MEDS: THIAMINE 100 MG TABLET PO SCH (10:08)
[2022-01-07] MEDS: ERGOCALCIFEROL 50,000 UNIT CAPSULE PO SCH (10:08)
[2022-01-07] MEDS: DESITIN 4OZ/NYSTATIN 15 GRAM MIXTURE PASTE TOP SCH ×2 (10:08→21:58)
[2022-01-07] MEDS: carvediloL 25 MG TABLET PER TUBE SCH ×2 (10:08→21:57)
[2022-01-07] MEDS: FOLIC ACID 1 MG TABLET PO SCH (10:08)
[2022-01-07] MEDS: OLANZapine 5 MG TABLET PO SCH (10:08)
[2022-01-07] MEDS: INSULIN REGULAR 100 UNIT/ML SUBCUT SCH ×2 (11:15→16:28)
[2022-01-07] MEDS: HALOPERIDOL 5 MG/ML AMP IM PRN (16:25)
[2022-01-07] MEDS: risperiDONE 1 MG TABLET PO SCH (21:58)
[2022-01-08] MEDS: OLANZapine 5 MG TABLET PO SCH (08:29)
[2022-01-08] MEDS: FLUoxetine 10 MG CAPSULE PO SCH (08:29)
[2022-01-08] MEDS: MONTELUKAST 10 MG TABLET PO SCH (08:30)
[2022-01-08] MEDS: MULTIVITAMIN (BEROCCA) TABLET PO SCH (08:30)
[2022-01-08] MEDS: levETIRAcetam 500 MG TABLET PO SCH ×2 (08:30→20:59)
[2022-01-08] MEDS: OMEPRAZOLE ODT 20 MG TABLET NG SCH (08:30)
[2022-01-08] MEDS: MAGNESIUM OXIDE 400 MG TABLET PER TUBE SCH ×2 (08:30→20:59)
[2022-01-08] MEDS: FOLIC ACID 1 MG TABLET PO SCH (08:30)
[2022-01-08] MEDS: allopurinoL 100 MG TABLET PO SCH ×3 (08:30→20:59)
[2022-01-08] MEDS: carvediloL 25 MG TABLET PER TUBE SCH ×2 (08:30→20:59)
[2022-01-08] MEDS: APIXABAN 5 MG TABLET PO SCH ×2 (08:30→20:59)
[2022-01-08] MEDS: THIAMINE 100 MG TABLET PO SCH (08:30)
[2022-01-08] MEDS: INSULIN REGULAR 100 UNIT/ML SUBCUT SCH ×2 (08:45→16:09)
[2022-01-08] MEDS: DESITIN 4OZ/NYSTATIN 15 GRAM MIXTURE PASTE TOP SCH ×2 (08:45→20:58)
[2022-01-08] MEDS: risperiDONE 1 MG TABLET PO SCH (20:59)
[2022-01-09] MEDS: INSULIN REGULAR 100 UNIT/ML SUBCUT SCH (08:00)
[2022-01-09] MEDS: OMEPRAZOLE ODT 20 MG TABLET NG SCH (09:20)
[2022-01-09] MEDS: MONTELUKAST 10 MG TABLET PO SCH (09:20)
[2022-01-09] MEDS: THIAMINE 100 MG TABLET PO SCH (09:20)
[2022-01-09] MEDS: allopurinoL 100 MG TABLET PO SCH (09:20)
[2022-01-09] MEDS: MAGNESIUM OXIDE 400 MG TABLET PER TUBE SCH (09:20)
[2022-01-09] MEDS: DESITIN 4OZ/NYSTATIN 15 GRAM MIXTURE PASTE TOP SCH (09:20)
[2022-01-09] MEDS: FOLIC ACID 1 MG TABLET PO SCH (09:20)
[2022-01-09] MEDS: carvediloL 25 MG TABLET PER TUBE SCH (09:20)
[2022-01-09] MEDS: OLANZapine 5 MG TABLET PO SCH (09:20)
[2022-01-09] MEDS: APIXABAN 5 MG TABLET PO SCH (09:20)
[2022-01-09] MEDS: FLUoxetine 10 MG CAPSULE PO SCH (09:20)
[2022-01-09] MEDS: levETIRAcetam 500 MG TABLET PO SCH (09:20)
[2022-01-09] MEDS: MULTIVITAMIN (BEROCCA) TABLET PO SCH (09:20)
[2022-01-09 12:46] VITALS: BP 140/84
== END 2022-01-09 14:00 | disposition home or self-care (01) | DRG 4 ==
LOC: N.ICU 15:40 → SUATTDRO 15:40 → N.ICU 12-03 18:07 → N.5E 12-20 14:53
PROVIDERS: ADMIT Family Medicine; ATTEND Internal Medicine
PROC: EGDWPEG (ICD-10-PCS; 2021-12-08 08:20)